=== PATIENT | female | born 1940 | race Caucasian/White ===

== ENCOUNTER 2017-09-15 03:10 | Emergency (ER) | payer MEDICARE, OTHER ==
[2017-09-15] MEDS ORDERED: Iodixanol* (CONTRAST) 320 MG/ML 100 ML SDV IV ONE (03:46)
[2017-09-15 06:33] LABS: ABS Basophils 0 10^3/ul (0-0.2); ABS Eosinophils 0 10^3/ul (0-0.6); ABS Lymphocytes 2.3 10^3/ul (1.0-4.8); ABS Monocytes 0.8 10^3/ul (0-0.8); ABS Nucleated RBC 0.3 10^3/ul; Eosinophil % 0.5 % (0-6); Hematocrit 42 % (35-47); Hemoglobin 14.3 g/dl (12.0-16.0); Lymphocyte % 24.6 % (25-47); Mean Corpuscular HGB Conc 34 g/dl (31-36); Mean Corpuscular Hemoglobin 35 pg (27-31); Mean Corpuscular Volume 103 fL (80-97); Mean Platelet Volume 9 um3 (7.4-10.4); Nucleated Red Blood Cells % 3.6; Platelet Count 104 10^3/ul (150-450); Red Blood Count 4.03 10^6/ul (4.0-5.4); Red Cell Distribution Width 14 % (10.5-15); White Blood Count 9.2 10^3/ul (3.5-10.8)
[2017-09-15 06:34] LABS: INR 4.29 (0.77-1.02)
[2017-09-15 06:44] LABS: EGFR Non-African American 47.4 (>60)
--- NOTE | 2017-09-15 06:55 | ED ---
Guicho Marcum Jennifer, scribed for Jeanmarie Cruz MD on 09/15/17 at 0328 . HPI Cardiac - HPI Summary HPI Summary: The pt is a 77 y/o female who was sent from [facility] for saddle PE and multiple DVTs. Pt had blood clot in one of the legs but doesnt know which one. She explains that six days ago, she was in bed and sat up when everything went haywire and she couldnt breathe. She was admitted to [place] for five days, but was still short of breath upon discharge. The pt was sent here to get re-evaluated today. She additionally complains of trouble breathing, weakness, and dry heaves. Pt denies chest pain, cough, fevers, abdominal pain, and pain in the legs. - History of Current Complaint Stated Complaint: SOB Time Seen by Provider: 09/15/17 03:14 Hx Obtained From: Patient Onset/Duration: Started Days Ago - six days, Still Present Timing: Constant Initial Severity: Mild Current Severity: Mild Pain Intensity: 0 Pain Scale Used: 0-10 Numeric Aggravating Factor(s): Nothing Alleviating Factor(s): Nothing Associated Signs and Symptoms: Positive: Other: - Blood clot, PE, CVT, trouble breathing, weakness, dry heaves. NEGATIVE: chest pain, cough, fevers, abdominal pain, pain in the legs - Allergy/Home Medications Allergies/Adverse Reactions: Allergies Allergy/AdvReac Type Severity Reaction Status Date / Time No Known Allergies Allergy Verified 09/15/17 03:17 Home Medications: Home Medications Acetaminophen [Tylenol] 650 mg PO Q6H PRN MDD 3000 09/15/17 [History Confirmed 09/15/17] Bisacodyl SUPP* [Dulcolax Supp*] 10 mg NM DAILY PRN 09/15/17 [History Confirmed 09/15/17] Cholecalciferol (Vitamin D3) [Vitamin D-3] 2,000 unit PO DAILY 09/15/17 [ History Confirmed 09/15/17] Clopidogrel Bisulfate [Plavix] 75 mg PO BEDTIME 09/15/17 [History Confirmed 09/03] Hydrocodone/Acetaminophen [[place] 5-325 mg] 1 tab PO Q4H PRN 09/15/17 [History Confirmed 09/15/17] Insulin Regular, Human [Novolin R] 2 units SQ ACHS 09/15/17 [History Confirmed 09/15/17] Lisinopril 20 mg PO DAILY 09/15/17 [History Confirmed 09/15/17] Lovastatin [Altoprev] 20 mg PO DAILY 09/15/17 [History Confirmed 09/15/17] Metformin HCl 500 mg PO BID 09/15/17 [History Confirmed 09/15/17] Oxycodone HCl/Acetaminophen [Percocet] 1 tab PO Q4H PRN 09/15/17 [History Confirmed 09/15/17] Warfarin Sodium [Coumadin] 2 mg PO DAILY 09/15/17 [History Confirmed 09/15/17] PMH/Surg Hx/FS Hx/Imm Hx Endocrine/Hematology History: Reports: Hx Diabetes Cardiovascular History: Reports: Hx Deep Vein Thrombosis, Hx Embolism Infectious Disease History: No Infectious Disease History: Denies: Traveled Outside the [place] in Last 30 Days - Family History Known Family History: Negative: Renal Disease - Social History Lives: Assisted Living - [facility] Review of Systems Negative: Fever Positive: Other - PE, DVT, blood clot in leg. Negative: Chest Pain Positive: Other - Difficulty breahting. Negative: Cough Positive: Other - Dry heaving. Negative: Abdominal Pain Negative: Myalgia - Pain in legs Positive: Weakness All Other Systems Reviewed And Are Negative: Yes Physical Exam - Summary Physical Exam Summary: Appearance: Appears dyspneic, no pain distress Skin: warm, dry, reflects adequate perfusion Head/face: normal Eyes: EOMI, PARVIZ ENT: normal Neck: supple, non-tender Respiratory: CTA, breath sounds present. O2 state on mask is 98. Cardiovascular: Tachypnic rate of 21, regular rhythm, pulses symmetrical Abdomen: non-tender, soft Bowel: present Musculoskeletal: Chronic nonpitting edema on both lower extremities, strength/ ROM intact Neuro: normal, sensory motor intact, A&Ox3 Triage Information Reviewed: Yes Vital Signs On Initial Exam: Initial Vitals Temp Pulse Resp BP Pulse Ox 97.6 F 85 24 129/78 96 09/15/17 03:10 09/15/17 03:10 09/15/17 03:10 09/15/17 03:10 09/15/17 03:10 Vital Signs Reviewed: Yes Diagnostics - Vital Signs Vital Signs Temp Pulse Resp BP Pulse Ox 03/02/18 03:10 97.6 F 85 24 129/78 96 - Laboratory Lab Results: Lab Results 09/15/17 Range/Units 03:19 Patient Temperature Not Reportable ABG pH 7.42 (7.35-7.45) ABG pH (Temp Correct) Not Reportable ABG pCO2 30 L (35-45) mmHg ABG pCO2 (Temp Corrct Not Reportable ABG pO2 84 (80-100) mmHg ABG pO2 (Temp Correct Not Reportable ABG HCO3 21.9 (19-31) mmol/L ABG O2 Saturation 98.4 H (95-98) % ABG Base Excess -3.8 L (-2.0-2.0) Respiration Rate Not Reportable O2 Delivery Device venturi Ventilator Type Not Reportable Vent Mode Not Reportable FiO2 50 Inspiratory Time Not Reportable PEEP Not Reportable Pressure Support Not Reportable Pressure Control Not Reportable EPAP Not Reportable IPAP Not Reportable BiPAP Not Reportable Result Diagrams: 09/15/17 06:18 09/15/17 06:18 Lab Statement: Any lab studies that have been ordered have been reviewed, and results considered in the medical decision making process. - CT No standard instances CT Interpretation: Positive (See Comments) CT Interpretation Completed By: Radiologist - discussed with rads (after we had initiated transfer for ED id of embolus) CT: Positive for large saddle PE with large clot burden and evidence for right heart strain - EKG 04:20 Cardiac Rate: NL EKG Rhythm: Sinus Rhythm - 96 BPM EKG Interpretation: low voltage, normal axis, non-specific ST flattening Re-Evaluation - Re-Evaluation First Eval Re-Evaluation Time: 05:19 Change: Unchanged Comment: The pt was unable to complete repeat CT due to hypoxia when flat. We obtained the records from [facility] in [place], [place]. Pt had a massive saddle PE with catheter thrombolysis bilaterally. She has a known below the knee residual DVT on the left. Disposition - Course Course Of Treatment: Pt on 50% Marisol on arrival. Unable to lay flat for CT initially. ABG looks ok on this FiO2. INR 6 just PROPERTY CARETAKER. Repeat labs here as am labs for hospitalist. Records obtained from [place] -- pt actually had catheter thrombolysis for massive saddle PE and circulatory comprimise. A DVT was noted below the L knee. Labs, findings d/w Hospitalist -- who had accepted transfer, but for ED eval. He has worked with me on decisions in ED. Failed first attempt at CT for dyspnea/plethora. Respiratory therapy/nursing will assist, perhaps on BiPAP or VapoTherm to get pt thru CT scan. Could be heart strain effects as well from residual or new portion of PE from leg. Vasc US not available until am. CT was grossly + for PE/saddle embolus. Pt with supratherapeutic INR. She cannot receive tPA due to this. Transfer emergently to [facility], Dr. Cesar in ED for ICU admit and consult with cardiothoracic etc. She may be a candidate for embolectomy. She is comorbid and at high risk of and disability from this PE. This explained to the patient. She accepted transfer. Assessment/Plan: Laboratory Data: WBC: 9.18 K/uL. HGB: 13.9 gm/dL. Platelet count: 123L. INR: 6.75(b)*P. BUN: 35H mg/dL. CREAT: 1.3 H mg/dL. CO2: 22 mmol/L. SGOT/AST: 61 H U/L. SGPT/ALT: 55 H U/L. ALK PHOS: 134 H U/L. The pt failed the CT scan initially due to dyspnea and hypoxia. We will put her on BiPAP. - Diagnoses Provider Diagnoses: Supratherapeutic INR, Hypoxemia, Pulmonary embolism, DM (diabetes mellitus) - Physician Notifications Discussed Care Of Patient With: Alexis Corbin Time Discussed With Above Provider: 04:54 Instructed by Provider To: Admit As Inpatient Admit/Transition Orders Completed By ED Provider: Yes - Discussed with [facility] Transfer Center -- auto accepted to Dr Cesar (ER) - Critical Care Time Critical Care Time: 75-104 min - CCT is exclusive of separately billable procedures Discharge - Discharge Plan Condition: Guarded Disposition: TRANS HIGHER LVL OF CARE FAC Referrals: Melchor Mistry DO [Primary Care Provider] - The documentation as recorded by the Guicho martinez Jennifer accurately reflects the service I personally performed and the decisions made by me, Jeanmarie Cruz MD.
--- NOTE | 2017-09-15 07:56 | RAD ---
INDICATION: Chest pain. Short of breath. Evaluate for pulmonary embolus. COMPARISON: None TECHNIQUE: Axial source images were obtained from the thoracic inlet to the hemidiaphragms following administration of 96 mL Visipaque [address] angiographic technique was utilized. Coronal and sagittal reconstructed images were acquired. CHEST FINDINGS: Neck/thyroid: There is a left thyroid nodule. This can be reevaluated with nonemergent follow-up thyroid sonography. Chest wall: There are no acute abnormalities of the bony thorax or chest wall. There is no supraclavicular, infraclavicular, or axillary lymphadenopathy. Lungs : There is a small amount of infiltrate or atelectasis in the periphery of left lung base. The pulmonary interstitium appears normal. There are no endobronchial lesions. Cardiomediastinal structures: There is a saddle pulmonary embolus with extension to fourth and fifth order branches bilaterally.. This is a large burden of thrombus. The heart is normal in size. There is no pericardial effusion. There is no evidence of aortic aneurysm or dissection. There is no mediastinal or hilar adenopathy. The esophagus appears normal. Pleura : There are small bilateral pleural effusions with partial loculation on the left.. Other: None. IMPRESSION: EXTENSIVE PULMONARY EMBOLI WITH LARGE CLOT BURDEN
[2017-09-15 08:28] VITALS: BP 135/51
== END 2017-09-15 08:20 | disposition short-term general hospital (02) ==
LOC: ED 03:10
DX: I26.99 Other pulmonary embolism without acute cor pulmonale (principal); E11.9 Type 2 diabetes mellitus without complications; R09.02 Hypoxemia; R79.1 Abnormal coagulation profile; Z86.718 Personal history of other venous thrombosis and embolism; Z79.84 Long term (current) use of oral hypoglycemic drugs; Z79.4 Long term (current) use of insulin; Z79.01 Long term (current) use of anticoagulants
CPT/HCPCS: 36415; 36600; 71275; 80048; 82803; 84484; 85025; 85610; 93005; 96374; 99285; Q9967

== ENCOUNTER 2018-01-07 06:33 | Inpatient (IN) | payer MEDICARE, MEDICAID ==
--- NOTE | 2018-01-07 07:55 | ED ---
Complex/Multi-Sys Presentation - HPI Summary HPI Summary: Patient is a 78-year-old female with history of diabetes, PAD, NSTEMI, and recent saddle PE as of August. She currently remains on Lovenox 150 mg twice a day. She states that approximately 4 PM yesterday she began to feel very weak and dizzy without headache or visual changes. She decided to take a nap and awoke several hours later and continued to feel worsening dizziness and weakness. She endorses feeling "heavy all over" but denies any chest pain, chest pressure or shortness of breath. She endorses some nausea and 1x episode vomiting at 11 PM. She then called her daughter who took her to [facility] where labs, chest x-ray and CT brain obtained. She states she is extremely fatigued and is having difficulty sitting up. She is in a motorized wheelchair and is fairly independent at home with an aide to help with daily activities. Vital signs are stable on arrival. Daughter is at bedside. - History Of Current Complaint Chief Complaint: EDGeneral Time Seen by Provider: 01/07/18 06:34 Hx Obtained From: Patient, Family/Scenery Builder Onset/Duration: Sudden Onset Timing: Constant Severity Currently: Moderate Severity Initially: Moderate Associated Signs And Symptoms: Positive: Dizziness, Weakness, Nausea, Vomiting, Decreased Oral Intake, Anticoagulation Therapy Related History: Other - saddle PE's as of Aug - Allergies/Home Medications Allergies/Adverse Reactions: Allergies Allergy/AdvReac Type Severity Reaction Status Date / Time No Known Allergies Allergy Verified 09/15/17 03:17 Home Medications: Home Medications Chlorthalidone 25 mg PO DAILY 01/07/18 [History Confirmed 01/07/18] Enoxaparin(*) [Lovenox(*)] 150 mg SQ Q12H 01/07/18 [History Confirmed 01/07/18] PMH/Surg Hx/FS Hx/Imm Hx Previously Healthy: No - see below Endocrine/Hematology History: Reports: Hx Diabetes Cardiovascular History: Reports: Hx Deep Vein Thrombosis, Hx Embolism - Immunization History Hx Pertussis Vaccination: No Immunizations Up to Date: Unable to Obtain/Confirm Infectious Disease History: No Infectious Disease History: Denies: Traveled Outside the [place] in Last 30 Days - Family History Known Family History: Negative: Renal Disease - Social History Occupation: Unemployed Lives: Alone - with help of part-time aide Alcohol Use: None Hx Substance Use: No Substance Use Type: Reports: None Hx Tobacco Use: No Smoking Status (MU): Never Smoked Tobacco Review of Systems Positive: Fatigue. Negative: Fever, Chills, Skin Diaphoresis Negative: Blurred Vision, Diplopia, Drainage Negative: Palpitations, Chest Pain Negative: Shortness Of Breath, Cough Positive: Vomiting, Nausea. Negative: Abdominal Pain, Diarrhea Genitourinary: Negative Positive: no symptoms reported, see HPI Negative: Arthralgia, Myalgia Positive: Weakness. Negative: Headache, Paresthesia, Numbness, Syncope, Slurred Speech Psychological: Normal All Other Systems Reviewed And Are Negative: Yes Physical Exam Triage Information Reviewed: Yes Vital Signs On Initial Exam: Initial Vitals Temp Pulse Resp BP Pulse Ox 98.6 F 69 18 123/54 98 01/07/18 07:04 01/07/18 07:04 01/07/18 07:04 01/07/18 07:04 01/07/18 07:04 Vital Signs Reviewed: Yes Appearance: Positive: Well-Appearing, No Pain Distress, Well-Nourished, Obese. Negative: Ill-Appearing, Signs of Trauma Skin: Positive: Skin Color Reflects Adequate Perfusion Head/Face: Positive: Normal Head/Face Inspection Eyes: Positive: EOMI, PARVIZ, Conjunctiva Clear Neck: Positive: Supple, Nontender, No Lymphadenopathy Respiratory/Lung Sounds: Positive: Clear to Auscultation, Breath Sounds Present Cardiovascular: Positive: RRR, Pulses are Symmetrical in both Upper and Lower Extremities, Leg Edema Left, Leg Edema Right Musculoskeletal: Positive: Normal, Strength/ROM Intact Neurological: Positive: Sensory/Motor Intact, Alert, Oriented to Person Place, Time, CN Intact II-III, Speech Normal. Negative: Facial Droop, Slurred Speech, Dysphagia Psychiatric: Positive: Normal, Affect/Mood Appropriate AVPU Assessment: Alert - [place] Coma Scale Best Eye Response: 4 - Spontaneous Best Motor Response: 6 - Obeys Commands Best Verbal Response: 5 - Oriented Coma Scale Total: 15 Glascow Coma Scale Comments: NIH scale= 0 Diagnostics - Vital Signs Vital Signs Temp Pulse Resp BP Pulse Ox 01/07/18 07:04 98.6 F 69 18 123/54 98 - Laboratory Lab Statement: Any lab studies that have been ordered have been reviewed, and results considered in the medical decision making process. - Radiology No standard instances Xray Interpretation: No Acute Changes - No acute cardiopulmonary changes Radiology Interpretation Completed By: Radiologist - CT No standard instances CT Interpretation: Positive (See Comments) - see course of treatment CT Interpretation Completed By: Radiologist - EKG No standard instances Cardiac Rate: NL EKG Rhythm: Sinus Rhythm ST Segment: Normal Ectopy: None EKG Interpretation: sinus rhythm, moderate left axis deviation, low QRS voltage in chest leads EKG Comparison: Other - no other comparisons available Re-Evaluation - Re-Evaluation First Eval Change: Unchanged - Continues to feel weak and dizzy, concerned with falling Complex Multi-Symp Course/Dx Course Of Treatment: Received signout information from Dr. Arana who accepted patient to the ED. Patient sent from [facility] for the chance to obtain an MRI if needed based on CT results. Results from CT: There is a small 7 mm low attenuation lesion surrounded by a high attenuation irregular halo, located just at the superior edge of the inferior vermis most likely in the nodulous, of unclear etiology. It is concerning for small vessel hemorrhage , however hemorrhagic mass lesion cannot be excluded on this examination and without prior studies for comparison, MRI with and without intravenous contrast be helpful. Dr. Arana called Dr. Doyle at approx 5am to make aware of patient and request if patient may be transferred to our ED for an MRI if needed. Patient is trasnferred to our facility, arriving at 6:30am. On physical examinations, no neuro deficits are noted. Patient is alert and oriented 3, obeys commands. No limb ataxia is noted, sensory is intact, strength equal to the upper extremities unable to perform to the lower extremities due to dependent edema at baseline. Language intact with no dysarthria. Patient is at baseline per her daughter except for extreme fatigue and weakness. Patient denies any neuro deficits during this time and denies any LOC, head injury or falls. D/t continued weakness and fatigue, patient will be admitted to hospitalist service. MRI will take place in the morning per Dr. Doyle. On reevaluation, patient continues to be very uncomfortable. She is given morphine for her back, Zofran and meclizine for dizziness. - Diagnoses Differential Diagnoses/HQI/PQRI: Closed Cranial Trauma Provider Diagnoses: Weakness - Physician Notifications Discussed Care Of Patient With: Jordan Doyle - Suggested MRI Time Discussed With Above Provider: 09:00 Instructed by Provider To: Other - MRI to r/o bleed vs other Discharge - Sign-Out/Discharge Documenting (check all that apply): Discharge/Admit/Transfer - Discharge Plan Condition: Stable Disposition: ADMITTED TO [facility] Referrals: Skylar Pablo MD [Primary Care Provider] - - Billing Disposition and Condition Condition: STABLE Disposition: Admitted to [facility] NIH Scale - NIH Scale Level of Consciousness: Alert/Keenly Responsive - NIH scale = 0 Ask Patient the Month and His/Her Age: Both Correct Ask Pt to Open/Close Eyes and Oyster Unloader/Release Non-Paretic Hand: Both Correctly Best Gaze (Only Horizontal Eye Movement): Normal Visual Field Testing: No Visual Loss Facial Paresis-Pt to Smile & Close Eyes or Grimace Symmetry: Normal/Symmetrical Motor Function - Right Arm: No Drift-Holds 10 Seconds Motor Function - Left Arm: No Drift-Holds 10 Seconds Limb Ataxia-Must be out of Proportion to Weakness Present: Absent Sensory (Use Pinprick to Test Arms/Legs/Trunk/Face): Normal Best Language (Describe Picture, Name Items): No Aphasia Dysarthria (Read Several Words): Normal Extinction and Inattention: No Abnormality
[2018-01-07] MEDS ORDERED: Meclizine TAB* 12.5 MG PO ONE ×2 (11:49→13:42)
[2018-01-07] MEDS ORDERED: Metoclopramide IV* 5 MG/ML 2 ML VIAL IV ONE (11:49)
[2018-01-07] MEDS ORDERED: Morphine VIAL* 4 MG/ML VIAL (1 ml vial) IV ONE (11:49)
[2018-01-07] MEDS ORDERED: Ondansetron INJ* 2 MG/ML VIAL IV ONE (13:42)
[2018-01-07] MEDS ORDERED: Ondansetron SYRINGE* 4 MG/2 ML SYRINGE (from 40mg/20ml vial) IV ONE (13:45)
[2018-01-07] MEDS ORDERED: Enoxaparin(*) 150 MG/ML 1 ML SYRINGE SUBCUT SCH (17:00)
[2018-01-07] MEDS ORDERED: Ondansetron 40 MG VIAL* 2 MG/ML 20 ML VIAL IV PRN (17:53)
[2018-01-07] MEDS ORDERED: Magnesium Sulf 4 GM/100 ML IV* 4,000 MG/100 ML BAG IVPB ONE (19:32)
--- NOTE | 2018-01-07 21:44 | HP ---
CC: Dr. Pablo * HISTORY AND PHYSICAL: DATE OF ADMISSION: 01/07/18 TIME OF MY EVALUATION: 5 p.m. PRIMARY CARE PROVIDER: Dr. Skylar Pablo CHIEF COMPLAINT: Dizziness/suspicious CT scan with need for followup MRI. HISTORY OF PRESENT ILLNESS: Ms. Faulkner is a pleasant 78-year-old woman who has a history of diabetes, peripheral arterial disease, non-STEMI and recent saddle PE in August 2017. The patient is currently on Lovenox 150 mg twice daily for treatment of this. There was a calculation that she would not to go with Coumadin and that the other NOAC's were inappropriate for her treatment and she has been taking Lovenox since then. She has not been monitored for her anti- factor Xa level. The patient has not been feeling well for some time. She has felt weak and recently dizzy. She had a headache several days ago. She does not have a headache now nor does she have visual changes. The patient awoke last night and felt very dizzy and weak. She realized she had not taken her 11 p.m. dose of Lovenox. She went to the bathroom, but could not get off the commode. She called to her family and she was brought to [facility] Emergency Room. A head CT showed a concerning lesion or specifically, "a small 7 mm low-attenuation lesion surrounded by a high-attenuation irregular halo, located just at the superior edge of the inferior ramus, most likely in the nodulous, of unclear etiology. It is concerning for a small vessel hemorrhage; however, hemorrhagic mass lesion cannot be excluded on this examination without prior studies for comparison. MRI with and without intravenous contrast would be helpful." The [facility] referred the patient to [facility] for further imaging and potentially Neurology or Neurosurgery evaluation. The patient's symptomatology has remained stable. She is not in extremis. She is admitted to the medicine service with intent to proceed with an MRI when that test is available. PAST MEDICAL HISTORY: 1. Pulmonary embolism - saddle embolus in August 2017, status post t-PA x2 ( treated at [facility]) with ongoing anticoagulation with Lovenox. 2. Hypertension. 3. Type 2 diabetes. 4. Hypertension. 5. Coronary artery disease with history of [place]. 6. Hemochromatosis. 7. History of appendectomy. 8. History of left leg stent placement for a peripheral arterial disease. OUTPATIENT MEDICATIONS: 1. Enoxaparin 150 mg subcu q.12. 2. Chlorthalidone 25 mg by mouth daily. 3. Metformin 500 mg by mouth twice daily. 4. Lisinopril 20 mg by mouth daily. 5. Lovastatin 20 mg by mouth at bedtime. ALLERGIES: No known drug allergies. FAMILY HISTORY: Reviewed, but noncontributory based on this presentation. SOCIAL HISTORY: The patient denies alcohol or tobacco use. She is accompanied by 2 family members including her daughter who is a surrogate decision maker. The patient is a full code. Her daughter's name is Val Gil who could be reached at [phone]. Second daughter, Kiley Sampson, who could be reached at [phone]. REVIEW OF SYSTEMS: A review of 14 points was accomplished at the bedside. This was largely negative, except for the pertinent positives as mentioned above in the HPI and past medical history. Specifically, there has been no fever. There has been no head trauma. No fainting or syncope. No chest pain. No new shortness of breath. No weight gain or weight loss. PHYSICAL EXAMINATION On admission: GENERAL: The patient is an elderly woman, lying in the [facility], no apparent distress, awake, alert and oriented x3 and answers questions appropriately. VITAL SIGNS: Temperature 98.6 degrees Fahrenheit, blood pressure ranges between 110 and 120/50s to 60s, heart rate 60s and regular, oxygen saturation 96 % on room air, respiratory rate is 17 to 20 and unlabored. HEENT: Oropharynx is clear. Mucous membranes are moist. No posterior pharyngeal erythema or exudate. LYMPH: No adenopathy appreciated. CHEST: Clear breath sounds anteriorly and posteriorly. No increased work of breathing. No rales, rhonchi, wheezing. HEART: Regular rate and rhythm. No murmurs appreciated. ABDOMEN: Soft and nontender. EXTREMITIES: Without clubbing, cyanosis. She does have 1+ edema bilaterally. No deformity. NEUROLOGIC: Cranial nerves are intact II through XII. Normal symmetric smile. No facial asymmetry. No motor or sensory or reflex component deficiencies on a detailed neurologic examination. PSYCH: Normal affect. No acute anxiety or depression. She has got excellent medical recall. She seems like a good historian. ADMISSION DATA: From [facility] included generally normal labs including a sodium of 135, potassium 3.8, chloride 101, bicarb 22, anion gap 12 , BUN 23, creatinine 1, glucose 176. Calcium not done. Magnesium 1.3 (low). AST 74, ALT 57, alk phos 130 (AST, ALT and alk phos were each mildly elevated). CK 56. Troponin 0.004. BNP normal at 55. Albumin mildly low at 3.3. INR 0.9. White blood cell count 7.1, hemoglobin 14.6, platelets 233. Her head CT without contrast showed the 7 mm lesion, I commented upon earlier in the HPI. Chest x-ray, no active disease in the pulmonary parenchyma, no evidence of pulmonary edema. IMPRESSION: Ms. Faulkner is a 78-year-old woman on high-dose Lovenox for some time. She is on the high end of dosing allowed daily and obese patients sometimes have problems maintaining consistent levels of Lovenox, accordingly a CRANE OILER hemorrhage is possible. Her creatinine is a bit on the high side given her age adjusted creatinine clearance. The patient has not evolution in her stated symptoms and so, she will be placed on the medical floor with intention to pursue an MRI in the next 1 day. The patient will have her anticoagulation held. The patient will continue all other medications and receive symptomatic control of any nausea she might experience. She will have labs rechecked tomorrow, though her labs do not seem abnormal at this point. I am going to replete her magnesium. I will also recheck her LFTs, which had mild elevations. The patient will have a regular diet if she can tolerate. I will check an A1c to assess her status of diabetes. Her blood pressure will be followed carefully. Further decisions will be based on clinical course. TOTAL SPENT: Total time taken to admit Ms. Faulkner was 75 minutes, greater than half that time was spent conducting history and physical examination at the bedside with the patient. [id number]/[facility] #: [id number] [facility] HOSPITALKimberlyn
[2018-01-07] MEDS: Atorvastatin* 10 MG TAB PO SCH (21:45)
[2018-01-08 07:08] LABS: Hematocrit 41 % (35-47); Hemoglobin 14.3 g/dl (12.0-16.0); Platelet Count 205 10^3/ul (150-450)
[2018-01-08 07:27] LABS: EGFR Non-African American 60.9 (>60)
[2018-01-08] MEDS: Lisinopril TAB* 10 MG PO SCH (08:47)
[2018-01-08] MEDS: Chlorthalidone TAB* 50 MG PO SCH (08:49)
[2018-01-08] MEDS ORDERED: Lisinopril TAB* 10 MG PO SCH (09:00)
[2018-01-08] MEDS ORDERED: Gadoteridol* (CONTRAST) 279.3 MG/ML 10 ML IV ONE (11:45)
[2018-01-08] MEDS ORDERED: NS 0.9% 1000 ML* 1,000 ML IV ONE (12:05)
[2018-01-08] MEDS ORDERED: Morphine VIAL* 4 MG/ML VIAL (1 ml vial) IV ONE (12:06)
--- NOTE | 2018-01-08 12:29 | RAD ---
Indication: Cerebellar lesion noted on January 07, 2018 CT. MRI requested for further characterization. Comparison: January 07, 2018 CT. Technique: MRI brain without and with contrast. 20 mL ProHance administered IV. Report: At the midline central cerebellum there is a 0.8 cm AP by 0.8 cm transverse by 1.0 cm cephalocaudal nonenhancing lesion with marked susceptibility artifact. The lesion demonstrates a peripheral low signal margin corresponding with calcification on CT. Mild surrounding increased T2 signal without mass effect is most consistent with gliosis. No compelling true foci of restricted diffusion evident. Unremarkable cerebral sulci, ventricles, and basal cisterns for age. 0.7 cm maximum dimension T2 hyperintense nonenhancing lesion at the subcortical white matter of the RIGHT frontal lobe without mass effect while nonspecific is most suggestive of a focus of small vessel ischemic disease. Preserved major intracranial flow-voids. Unremarkable orbital contents. Solitary opacified LEFT ethmoid air cell noted. Negative for paranasal sinus fluid levels. Clear mastoid air spaces. No suspicious calvarial or skull base lesions evident. Unremarkable scalp. IMPRESSION: 1. Lesion at the midline central cerebellum is most consistent with an old intra-axial hemorrhage site with secondary marginal calcification and surrounding gliosis. Consider reassessment with noncontrast CT in 3 months time to confirm stability. 2. No acute intracranial process evident.
[2018-01-08] MEDS: Acetaminophen TAB* 325 MG PO PRN (20:11)
[2018-01-08] MEDS: Atorvastatin* 10 MG TAB PO SCH (20:12)
--- NOTE | 2018-01-08 23:26 | CONS ---
NEUROLOGY CONSULTATION REPORT: DATE OF CONSULT: 01/08/18. CONSULTING PHYSICIAN: Elvis Stroud MD REASON FOR CONSULT: Abnormal MRI. CHIEF COMPLAINT: Dizziness. HISTORY OF PRESENT ILLNESS: Mrs. Elena Faulkner is a pleasant 78-year-old right- handed female, who is accompanied today by both daughters and grandchild. Her daughter, Val significantly helped obtaining the history. The patient has a history of diabetes mellitus type 2, obesity, diabetic peripheral neuropathy, peripheral artery disease, status post stenting in both lower extremities, diagnosis of a saddle pulmonary embolism in August 2017 where she has been taking Lovenox 150 mg twice daily. The patient presented to an outside hospital , [facility] emergency room with symptoms of headaches and dizziness. The headaches were described as a pressure sensation on the top of the head with radiating to the occipital region and only occurred Monday night at approximately 11 p.m. She was sleeping at that time, but dizzy and could not do anything. She felt like everything around her is moving and she feels like she is going to fall. The vertiginous sensation that was described, is triggered by head deviation towards the left. She feels like she needs to hold on to something when looking towards the left. The symptoms last 30-60 seconds and spontaneously improved. That weekend, the patient came back from a memorial function. She thought she was getting sick from the food she had consumed. She had one episode of vomiting associated with the dizziness. She also felt like she was fatigued and described a sensation of feeling bricks all over her body. She had no energy that night. Since then, she has been sleeping a lot. She has not had any headaches since Monday. She had to take Tylenol for the occipital pain that immediately resolved. She denied any visual disturbance. She denied any double vision. She did have an inner ear problem a year and half ago where she had to see an ENT specialist and they gave her a nasal spray to get rid fluids behind her ear. She does not have any tinnitus, but does exhibit mild hearing loss. At [facility], the patient had a CT of the head that showed an irregular nodular mass in the central cerebellum mostly involving the vermis with the hypodense core and hyperdense borders. The patient was then transferred to [facility] for further evaluation. Since being hospitalized, the patient stated that her vertigo has improved a bit until she underwent the MRI study today. Since then, the patient is having intermittent vertigo mostly again when she turns towards the left. The Lovenox has been discontinued since admission. PAST MEDICAL HISTORY: Pulmonary embolus, status post tPA x2 treated at [facility] with ongoing anticoagulation with Lovenox, hypertension, type 2 diabetes , peripheral neuropathy, peripheral vascular disease, hemochromatosis, coronary artery disease with history of [place], history of appendectomy, two natural births and one miscarriage, vascular stents in both legs. MEDICATIONS: Her outpatient medications include: 1. Enoxaparin 150 mg subcutaneous every 12 hours. 2. Chlorthalidone 25 mg by mouth daily. 3. Metformin 500 mg by mouth twice daily. 4. Lisinopril 20 mg by mouth daily. 5. Lovastatin 20 mg by mouth at bedtime. ALLERGIES: No known drug allergies. FAMILY HISTORY: Mother was killed at age 29 and her father had a heart attack at age 80. There is no history of stroke or seizures. SOCIAL HISTORY: The patient denied alcohol or tobacco use. She is retired and "master of all trades." She lives alone, but has a caregiver that comes 30 hours a week. At baseline, the patient can stand, pivot, and sit. She cannot walk for 4-5 years. She is a walker and wheelchair dependent due to lower extremity pain as well as low back pain and neuropathy. REVIEW OF SYSTEMS: A 14-point review of systems was obtained and is negative except for what was mentioned in the HPI. PHYSICAL EXAM: Vitals: Temperature of 97.1, pulse rate of 62, respiratory rate of 20, oxygen saturation 95% on room air, and blood pressure 104/41. General: Morbidly obese, chronically ill-appearing female, in no acute distress. Head: Normocephalic without obvious abnormality. Eyes: Conjunctivae/corneas are clear. Neck: Supple and symmetrical with no carotid bruit. Lungs are clear to auscultation bilaterally and unlabored breathing. Cardiovascular: Regular rate and rhythm. Normal S1, S2. Extremities: Normal range of motion with no cyanosis. Psych: Affect is broad and normal mood, easy to establish rapport. She was laughing with the examiner throughout the history taking. HINTS examination was done and there was positive HINTS towards the right. Neurological Examination: Mental status, awake and alert, oriented to person and place and time and general circumstance. Her speech and language including expression, naming, repetition and comprehensions were assessed and found to be normal. She did have trouble with recalling 2/5 objects, but was able to spell the word world and was oriented to person, place, time as well as the president and current ongoing events. Cranial nerves normal confrontation testing bilaterally and pupils are mid range and reactive to light with normal consensual response. Mild nystagmus towards the left with end-gaze testing. The nystagmus was slightly horizontal. Sensation is intact to forehead, cheeks , and jaw region bilaterally. There is no facial droop. She was hard of hearing. Palatal elevation symmetric. The tongue is symmetrical and midline and with no atrophy or fasciculation. Motor: There are no abnormal movements. No pronator drift. She has normal bulk and tone throughout. Strength is intact with elevation of the arms and legs to command. Reflexes: 1+ in the upper extremities and 0 in the lower extremities bilaterally. She has flexor plantar response bilaterally. Sensation is intact to light touch throughout, but she did have a distal to proximal sensory gradient demarcated at the knees bilaterally. She has absent vibratory sensation at the toes with intact proprioception sensation at the toes. Coordination: Normal [id number] and rapid alternating movement. Gait and station not assessed, as the patient is wheelchair bound. DIAGNOSTIC STUDIES/LAB DATA: Laboratory and other diagnostic testing, hemoglobin 14. Sodium of 137, blood glucose of 160. MRI of the brain with and without contrast obtained completed today, 01/08/18, and I personally reviewed the image as well as reviewed the image with Dr. Mane Bal via telephone. There is a lesion in the midline of the central cerebellum mostly involving the vermis measuring approximately 0.8 cm x 0.8 cm x 1 cm cephalocaudal nonenhancing lesion with marked susceptibility artifact, although an old hemorrhage is within the differential specifically in the setting of a slow flow vascular malformation such as a cavernous angioma. Other differential diagnoses that are less likely include dystrophic calcification, metastatic disease, low-grade astrocytoma or oligodendroglioma. However, the lack of enhancement pretty much excludes the later differential diagnoses. ASSESSMENT: 1. Mrs. Faulkner is a pleasant 78-year-old female with what I suspect peripheral vertigo that may have been triggered by either in upper respiratory or gastrointestinal infection. I suspect the vertigo has a peripheral component given that it is triggered every time she looks towards the left side. A central vertigo would be more constant and non-abating after a few seconds. 2. 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 Bal. I would like to see the CT head images once uploaded to the system. I do not suspect that this is an acute or subacute intracranial hemorrhage. The patient has no known history of cancer thus metastatic disease is unlikely, plus the lesion does not enhance, thus a high-grade glioma is also unlikely. In regards to anticoagulation therapy, it would be probably safer to closely monitor the patient on Coumadin with again close monitoring of the INR rather than restarting her on Lovenox. I would prefer to repeat the CT head after 7- 10 days of restarting anticoagulation therapy to make sure the intracranial lesion does not expand. Furthermore, I would recommend obtaining a neurosurgical evaluation for a second opinion and to establish outpatient followup with neurosurgery in the future in case the lesion expands. I discussed ordering an MRA or considering cerebral angiogram with Dr. Bal but given the small size of the area, it may not be apparent on further vascular studies. This can still be a consideration in the future. 3. Generalized fatigue - rule out any metabolic causes of nonspecific fatigue. Given her morbid obesity, she may have underlying obstructive sleep apnea that is also contributing to her fatigue. I differ further recommendation to the primary team. However, I will check vitamin B12 and TSH if that has not been checked yet. RECOMMENDATIONS: 1. Obtain a neurosurgical evaluation 2. From the Neurology standpoint, the patient can start anticoagulation with Coumadin rather than Lovenox with close monitoring of INR (goal 2-2.5). 3. Repeat the CT head with at least 7-10 days once the INR becomes therapeutic. 4. BP goal: systolic blood pressure should remain below 140 mmHg. 5. I have ordered vitamin B12 and TSH to evaluate for secondary causes of fatigue. 6. I recommend PT evaluation to perform the Florentino maneuver. I have discussed these recommendations in this case with Dr. Bal and Dr. Elvis Stroud, who agreed with the above recommendations. [id number]/[facility] #: [id number] [facility]
[2018-01-09] MEDS: Lisinopril TAB* 10 MG PO SCH (10:25)
[2018-01-09] MEDS: Chlorthalidone TAB* 50 MG PO SCH (10:26)
--- NOTE | 2018-01-09 11:40 | PN ---
Subjective Date of Service: 01/09/18 Interval History: patient reports she feels a little better today but continues to have dizziness when moving head to either side. Still feels that she cannot get OOB d/t dizziness. She reports improved appetite this morning. No abd pain N/v/D. Denies ALEMAN, vision changes, weakness. Discussed at length starting coumadin. Daughter at the bedside. Objective Active Medications: Acetaminophen (Tylenol Tab*) 650 mg PO Q6H PRN PRN Reason: HEADACHE Last Admin: 01/08/18 20:11 Dose: 650 mg Atorvastatin Calcium (Lipitor*) 5 mg PO BEDTIME BROCK Last Admin: 01/08/18 20:12 Dose: 5 mg Chlorthalidone (Hygroton Tab*) 25 mg PO DAILY [facility] Last Admin: 01/09/18 10:26 Dose: 25 mg Lisinopril (Prinivil Tab*) 10 mg PO DAILY [facility] Last Admin: 01/09/18 10:25 Dose: Not Given Ondansetron HCl (Zofran 40 Mg Vial*) 4 mg IV Q6H PRN PRN Reason: NAUSEA/VOMITING Last Admin: 01/08/18 13:37 Dose: 4 mg Vital Signs - 8 hr 01/09/18 01/09/18 03:56 07:56 Temperature 97.9 F 97.2 F Pulse Rate 66 64 Respiratory 16 18 Rate Blood Pressure 111/52 97/44 (mmHg) O2 Sat by Pulse 93 94 Oximetry Oxygen Devices in Use Now: None Appearance: morbidly obese female laying in bed in NAD, A+O x3, CADDO Eyes: No Scleral Icterus, PERRLA Ears/Nose/Mouth/Throat: NL Teeth, Lips, Gums, Mucous Membranes Moist Neck: NL Appearance and Movements; NL JVP Respiratory: Symmetrical Chest Expansion and Respiratory Effort, Clear to Auscultation Cardiovascular: NL Sounds; No Murmurs; No JVD, RRR, - - 1+ lymphedema Abdominal: NL Sounds; No Tenderness; No Distention, - - obese Extremities: No Clubbing, Cyanosis Neurological: Alert and Oriented x 3, NL Sensation, NL Muscle Strength and Tone Lines/Tubes/Other Access: Clean, Dry and Intact Peripheral IV Nutrition: Taking PO's Result Diagrams: 01/09/18 11:44 01/09/18 11:44 Assess/Plan/Problems-Billing Assessment: Ms. Solo is a 78 yo female with hx of morbid obesity, CAD with hx of NSTEMI, PAD, recent saddle PE in Aug 2017 with tPA x2 at [facility] on lovenox, DMII, HTN, s/p left leg stent for PAD who presented to [facility] ER on 01/07 for c/o dizziness and was found to have an abnormal CT and was transferred to [facility] - Patient Problems (1) Dizziness Comment: - appreciate neurology consult - suspects peripheral vertigo recommending Florentino maneuver as outpt with PT. - MRI showing cavernous angionoma (incidental finding), NS reviewed films. No contraindication to anticoagulation of any kind. - Slowly improving. Start Meclazine scheduled. - PT eval (2) ARF (acute renal failure) Comment: - creatinine up a little today, poor PO intake of fluids. Give 1 liter NS x1 now slowly. Recheck in am (3) Pulmonary embolism Comment: - Hx of saddle PE with tPA x2 in Aug 2017, was DC home from [facility] on Lovenox BID for 3-6 months and the plan per patient was to start a different agent. Discussed couamdin with pt and daughter. the plan will be to bridge coumadin with lovenox. Ok to restart anticoagulation per neurology (4) DM (diabetes mellitus) Comment: - HgA1C 6.5 - FSBG AC with Lispro SS - Hold Metformin (5) HTN (hypertension) Comment: - Hold parameters on lisinopril and chlorthalidone, d/t soft BPs. (6) Morbid obesity (7) DVT prophylaxis Comment: coumadin lovenox bridge (8) Full code status Status and Disposition: Inpatient. PT to eval to determine status. May require subacute
[2018-01-09 11:51] LABS: ABS Basophils 0.1 10^3/ul (0-0.2); ABS Eosinophils 0.1 10^3/ul (0-0.6); ABS Lymphocytes 1.5 10^3/ul (1.0-4.8); ABS Monocytes 0.4 10^3/ul (0-0.8); ABS Neutrophils 3.7 10^3/ul (1.5-7.7); ABS Nucleated RBC 0 10^3/ul; Eosinophil % 2.1 % (0-6); Hematocrit 43 % (35-47); Hemoglobin 14.7 g/dl (12.0-16.0); Lymphocyte % 26.3 % (25-47); Mean Corpuscular HGB Conc 34 g/dl (31-36); Mean Corpuscular Hemoglobin 34 pg (27-31); Mean Corpuscular Volume 100 fL (80-97); Mean Platelet Volume 6.9 um3 (7.4-10.4); Nucleated Red Blood Cells % 0.1; Platelet Count 194 10^3/ul (150-450); Red Blood Count 4.32 10^6/ul (4.00-5.40); Red Cell Distribution Width 13 % (10.5-15); White Blood Count 5.9 10^3/ul (3.5-10.8)
[2018-01-09 12:01] LABS: INR 1.01 (0.77-1.02)
[2018-01-09 12:15] LABS: EGFR Non-African American 52.7 (>60)
[2018-01-09] MEDS: Meclizine TAB* 12.5 MG PO SCH ×2 (13:59→22:52)
[2018-01-09] MEDS: Acetaminophen TAB* 325 MG PO PRN (13:59)
[2018-01-09] MEDS ORDERED: Dextrose 50% Syringe 50 ML* 25 GM/50 ML SYRINGE IV PUSH PRN (15:13)
[2018-01-09] MEDS ORDERED: NS 0.9% 1000 ML* 1,000 ML IV SCH (15:30)
--- NOTE | 2018-01-09 15:37 | CONSULT ---
Consult Consult: Neurosurgery Consult Date of Admission: 01/07/18 Date of Consult: 01/09/18 Referring Provider: Anjana Infante NP Reason for Consult: Cavernous angioma HPI: This is a 78 year old female with past medical history significant for saddle PE in August, diabetes, CAD and PAD who presented to [facility] ED after obtaining CT at [place] for work up of dizziness. She states that she experienced a headache last relieved with Tylenol. On Monday, she developed dizziness, generalized feeling of weakness, nausea, vomiting and " wavy vision". At baseline, she uses an electric wheelchair but is able to stand , pivot and sit. She was unable to get up off of the commode on Monday and therefore called for help. She was brought to [place] ED where CT was obtained showing cavernous angioma. She was transferred to [facility] for further evaluation. MRI was obtained showing cavernous angioma. Currently, she states that she feels well. Wavy/blurred vision and dizziness is improved and she is able to clearly see her daughter sitting across the room. Dizziness worsens with head movements. Denies vision changes, headache, nausea, vomiting, lack of coordination, Past Medical History: 1. Pulmonary embolism 2018- treated at [facility] 2. HTN 3. Diabetes 4. Obesity 5. Hemochromatosis 6. CAD with history of MA 7. Peripheral artery disease- stent placed 8. Cavernous angioma cerebellum 9. Peripheral neuropathy Past Surgical History: 1. Appendectomy 2. LLE stent placement Home Medications: 1. Lisinopril 20 mg PO DAILY 09/15/17 [History Confirmed 01/07/18] 2. Lovastatin [Altoprev] 20 mg PO BEDTIME 09/15/17 [History Confirmed 01/07/18] 3. Metformin HCl 500 mg PO BID 09/15/17 [History Confirmed 01/07/18] 4. Chlorthalidone 25 mg PO DAILY 01/07/18 [History Confirmed 01/07/18] 5. Enoxaparin(*) [Lovenox(*)] 150 mg SQ Q12H 01/07/18 [History Confirmed ] Allergies: No known allergies Social History: Patient lives alone and has an aide. No smoking or alcohol use history. ROS: Full ROS completed. Pertinent findings stated in HPI and all others negative. Physical Exam: Vital Signs: Temp Pulse Resp BP Pulse Ox 97.9 F 70 20 131/39 96 01/09/18 15:26 01/09/18 15:26 01/09/18 15:26 01/09/18 15:26 01/09/18 15:26 General: Alert and laying comfortably in bed. Oriented to person, place and time. HEENT: Head is normocephalic and atraumatic. PERRL, EOMI. Mild hearing loss. Moist mucus membranes. Neck: Supple and symmetric. Nontender to palpation. CV: Radial pulses 2+ bilaterally. Pedal edema bilaterally. Pedal pulses difficult to palpate. Lungs: Breathing is nonlabored. Abdomen: The abdomen is obese. Neuro: Speech is clear. Answers questions appropriately. CN II-XII intact. Strength in upper and lower extremities 5/5 although limited exam in lower extremities secondary to pain. Finger to nose coordination intact. No pronator drift. Imagin. CT brain on 01/07/18 shows cavernous angioma of cerebellum 2. MRI brain on 01/08/18 shows cavernous angioma of cerebellum Assessment and Plan: This is a 78 year old female who presented to the [facility] ED with dizziness upon standing. Cavernous angioma of the cerebellum incidentally found on CT brain. Unlikely contributing to dizziness. There is no indication for neurosurgical intervention or treatment. There is no contraindication to anticoagulation therapy of any form. This case has been discussed with Dr. Balderrama who also reviewed the CT.
[2018-01-09] MEDS: Enoxaparin(*) 150 MG/ML 1 ML SYRINGE SUBCUT SCH (17:25)
[2018-01-09] MEDS: Warfarin TAB(*) 3 MG PO SCH (17:25)
[2018-01-09] MEDS: Insulin LISPRO* 1 UNITS UNIT SUBCUT SCH (17:25)
[2018-01-09] MEDS: Atorvastatin* 10 MG TAB PO SCH (22:52)
[2018-01-10] MEDS: Meclizine TAB* 12.5 MG PO SCH ×3 (06:08→22:22)
[2018-01-10] MEDS: Enoxaparin(*) 150 MG/ML 1 ML SYRINGE SUBCUT SCH ×2 (06:08→17:43)
[2018-01-10 07:29] LABS: ABS Basophils 0.1 10^3/ul (0-0.2); ABS Eosinophils 0.2 10^3/ul (0-0.6); ABS Lymphocytes 2.3 10^3/ul (1.0-4.8); ABS Monocytes 0.6 10^3/ul (0-0.8); ABS Neutrophils 2.5 10^3/ul (1.5-7.7); ABS Nucleated RBC 0 10^3/ul; EGFR Non-African American 59.4 (>60); Eosinophil % 3.7 % (0-6); Hematocrit 41 % (35-47); Hemoglobin 14.4 g/dl (12.0-16.0); Lymphocyte % 40.6 % (25-47); Mean Corpuscular HGB Conc 35 g/dl (31-36); Mean Corpuscular Hemoglobin 35 pg (27-31); Mean Corpuscular Volume 98 fL (80-97); Mean Platelet Volume 7.4 um3 (7.4-10.4); Nucleated Red Blood Cells % 0.1; Platelet Count 193 10^3/ul (150-450); Red Blood Count 4.17 10^6/ul (4.00-5.40); Red Cell Distribution Width 13 % (10.5-15); White Blood Count 5.7 10^3/ul (3.5-10.8)
[2018-01-10 07:30] LABS: INR 1.03 (0.77-1.02)
[2018-01-10] MEDS: Insulin LISPRO* 1 UNITS UNIT SUBCUT SCH ×3 (08:03→17:19)
[2018-01-10] MEDS: Acetaminophen TAB* 325 MG PO PRN (10:09)
--- NOTE | 2018-01-10 10:32 | PN ---
NEUROLOGY PROGRESS NOTE: DATE OF SERVICE: 01/09/18 PRIMARY PROVIDER: Anjana Infante NP Neurology is following for the evaluation of dizziness and abnormal CT finding. SUBJECTIVE: Mrs. Faulkner is resting in bed comfortably. She is complaining of slight low back pain and discomfort. She prefers to be discharged home, then go to a rehab facility, but understands that she needs acute Rehab. She still has dizziness that seems to be improving. The dizziness is triggered by head positioning mostly when looking towards the left. She noticed less nausea sensation. She denied any headaches. She denied any chest pain, shortness of breath, or palpitations. REVIEW OF SYSTEMS: As per subject. CURRENT MEDICATIONS: Include: 1. Acetaminophen. 2. Atorvastatin. 3. Enoxaparin 135 mg subcutaneous injection every 12 hours. 4. Insulin Humalog. 5. Meclizine. 6. Ondansetron. 7. Warfarin 3 mg p.o. nightly. PHYSICAL EXAMINATION: Vital Signs: Temperature of 97.9, pulse of 70, respiratory rate of 20, oxygen saturation 96 on room air, and blood pressure is 131/39. General: This is a morbidly obese, chronically ill-appearing female who is nearly bed bound. Normocephalic, atraumatic. Eyes: Conjunctivae and cornea are clear. Supple and symmetrical neck without any carotid bruits. Psych : Affect is broad and normal mood. She is extremely happy and laughing throughout the history. Neurological Examination: Mental status: Awake and alert; oriented to person, place, time, and general circumstance. She has no nystagmus today where there was a mild nystagmus towards the left yesterday. Sensation is intact in the forehead, cheeks, and jaw region bilaterally. There is no fascial droop. She moves all upper extremities without any focal weakness. She had restricted movements of the lower extremity due to back pain today. She is afebrile. She has chronic back pain, this is not a new problem. Sensation is intact throughout the proximal and distal extremity expect for there is a sensory gradient demarcated at the knees bilaterally. LABORATORY FINDINGS: This was from 01/09/18, WBC 5.9, hemoglobin 14.7, hematocrit of 43. Sodium of 137, glucose of 158, creatinine 1.02. No new intracranial images were done. ASSESSMENT: 1. Mrs. Faulkner is a pleasant 78-year-old female who I suspect has peripheral vertigo possibly related to vestibular dysfunction and a benign positional paroxysmal vertigo. This has improved slightly with time and meclizine. I do not suspect this is related to a central vertigo given the semiology and the duration of the symptoms. I recommend outpatient vestibular rehab by a trained physical therapist that can perform Florentino maneuvers. Balance training is not indicated given that the patient is nearly wheelchair/bed bound. 2. Incidental finding of cavernous malformation. I reviewed neurosurgical consultation. The patient can be restarted on anticoagulation therapy for her saddle embolism. I do agree on Coumadin therapy given the importance and close monitoring rather than proceeding with Lovenox. Bridging therapy is appropriate in this case. I do recommend obtaining a CT of the head at least within 10 days to make sure there has been no change in the cavernous malformation which I do not suspect there will be. I also recommend the patient should follow up as an outpatient with a neurosurgical specialist to have future repeat imaging to further evaluate the lesion. 3. Generalized fatigue - I was unable to find any metabolic cause for the fatigue. Her vitamin B12 level was 460 and TSH is 1.22 which are all within normal range. I encouraged the patient to exercise or increase her functional ability. Also she can be evaluated as an outpatient for possible obstructive sleep apnea. I do not have any further recommendations. I will sign off, but I am available for any further questions or concerns. [id number]/[facility] #: [id number] VIANEY
[2018-01-10] MEDS: Warfarin TAB(*) 3 MG PO SCH (17:43)
--- NOTE | 2018-01-10 18:24 | PN ---
Subjective Date of Service: 01/10/18 Interval History: Patient reports she is feeling much better today for the first in a week reporting her dizziness is much much better "almost resolved". Per PT when she got OOB she was a little dizzy and unstable on her feet but may be close to her baseline as she is only a stand and pivot. Pt feels a little weak but feels close to her baseline Objective Active Medications: Acetaminophen (Tylenol Tab*) 650 mg PO Q6H PRN PRN Reason: HEADACHE Last Admin: 01/10/18 10:09 Dose: 650 mg Atorvastatin Calcium (Lipitor*) 5 mg PO BEDTIME BROCK Last Admin: 01/09/18 22:52 Dose: 5 mg Dextrose (D50w Syringe 50 Ml*) 12.5 gm IV PUSH .FOR FS < 60 - SS PRN PRN Reason: FS < 60 Docusate Sodium (Colace Cap*) 100 mg PO DAILY PRN PRN Reason: CONSTIPATION Enoxaparin Sodium (Lovenox(*)) 135 mg SUBCUT Q12H [facility] Last Admin: 01/10/18 17:43 Dose: 135 mg Insulin Human Lispro (Humalog*) 0 units SUBCUT AC [facility]; Protocol Last Admin: 01/10/18 17:19 Dose: Not Given Magnesium Hydroxide (Milk Of Magnesia Liq*) 30 ml PO Q4H PRN PRN Reason: CONSTIPATION Meclizine HCl (Antivert Tab*) 12.5 mg PO Q8HR [facility] Last Admin: 01/10/18 14:24 Dose: 12.5 mg Ondansetron HCl (Zofran 40 Mg Vial*) 4 mg IV Q6H PRN PRN Reason: NAUSEA/VOMITING Last Admin: 01/08/18 13:37 Dose: 4 mg Warfarin Sodium (Coumadin Tab(*)) 3 mg PO DAILY@1700 BROCK; Protocol Last Admin: 01/10/18 17:43 Dose: 3 mg Vital Signs - 8 hr 01/10/18 01/10/18 11:33 15:33 Temperature 97.9 F 97.5 F Pulse Rate 71 61 Respiratory 19 22 Rate Blood Pressure 101/34 118/78 (mmHg) O2 Sat by Pulse 98 96 Oximetry Oxygen Devices in Use Now: None Appearance: mosbidly obese female laying in bed in NAD. A+Ox3 Eyes: No Scleral Icterus, PERRLA Ears/Nose/Mouth/Throat: NL Teeth, Lips, Gums, Mucous Membranes Moist Neck: NL Appearance and Movements; NL JVP Respiratory: Symmetrical Chest Expansion and Respiratory Effort, Clear to Auscultation Cardiovascular: NL Sounds; No Murmurs; No JVD, RRR Abdominal: NL Sounds; No Tenderness; No Distention, - - obese Extremities: No Clubbing, Cyanosis Skin: No Rash or Ulcers, No Nodules or Sclerosis Neurological: Alert and Oriented x 3, NL Sensation, NL Muscle Strength and Tone Lines/Tubes/Other Access: Clean, Dry and Intact Peripheral IV Nutrition: Taking PO's Result Diagrams: 01/10/18 06:59 01/10/18 06:59 Assess/Plan/Problems-Billing Assessment: Ms. Solo is a 78 yo female with hx of morbid obesity, CAD with hx of NSTEMI, PAD, recent saddle PE in Aug 2017 with tPA x2 at [facility] on lovenox, DMII, HTN, s/p left leg stent for PAD who presented to [facility] ER on 01/07 for c/o dizziness and was found to have an abnormal CT and was transferred to [place] - Patient Problems (1) Dizziness Comment: - Much improved today suspect it is related to starting meclizine yesterday - patient OOB for first time in days this afternoon. - appreciate neurology consult - suspects peripheral vertigo recommending Florentino maneuver as outpt with PT if doesnt resolved. - MRI showing cavernous angionoma (incidental finding), NS reviewed films. No contraindication to anticoagulation of any kind. - Continue Meclazine scheduled. - PT following - will see again tomorrow (2) ARF (acute renal failure) Comment: - Resolved with IVFs (3) Pulmonary embolism Comment: - Hx of saddle PE with tPA x2 in Aug 2017, was DC home from [facility] on Lovenox BID for 3-6 months and the plan per patient was to start a different agent. Discussed coumadin with pt and daughter. the plan will be to bridge coumadin with lovenox. Will require VNS services for INR draws as she is fairly homebound (4) DM (diabetes mellitus) Comment: - HgA1C 6.5 - FSBG AC with Lispro SS - Hold Metformin (5) HTN (hypertension) Comment: - Hold parameters on lisinopril and chlorthalidone, d/t soft BPs. (6) Morbid obesity (7) DVT prophylaxis Comment: coumadin lovenox bridge (8) Full code status Status and Disposition: Inpatient. PT to eval to determine status, her baseline is stand and pivot. She may be able to go home but is open to subacute if required.
[2018-01-10] MEDS: Docusate CAP* 100 MG PO PRN ×2 (18:41→22:21)
[2018-01-10] MEDS: Magnesium Hydroxide LIQ* 30 ML UDC PO PRN ×2 (18:41→22:23)
[2018-01-10] MEDS: Atorvastatin* 10 MG TAB PO SCH (22:21)
[2018-01-11] MEDS: Meclizine TAB* 12.5 MG PO SCH ×2 (05:44→14:48)
[2018-01-11] MEDS: Enoxaparin(*) 150 MG/ML 1 ML SYRINGE SUBCUT SCH (05:44)
[2018-01-11 05:58] LABS: INR 1.05 (0.77-1.02)
[2018-01-11] MEDS: Insulin LISPRO* 1 UNITS UNIT SUBCUT SCH ×2 (08:25→12:24)
[2018-01-11 12:52] VITALS: BP 132/50
--- NOTE | 2018-01-11 13:38 | PN ---
Subjective Date of Service: 01/11/18 Interval History: Ms. Faulkner states that she is feeling well. She has no further dizziness. She is eager for discharge. Objective Active Medications: Acetaminophen (Tylenol Tab*) 650 mg PO Q6H PRN Atorvastatin Calcium (Lipitor*) 5 mg PO BEDTIME BROCK Dextrose (D50w Syringe 50 Ml*) 12.5 gm IV PUSH .FOR FS < 60 - SS PRN Docusate Sodium (Colace Cap*) 100 mg PO DAILY PRN Enoxaparin Sodium (Lovenox(*)) 135 mg SUBCUT Q12H BROCK Insulin Human Lispro (Humalog*) 0 units SUBCUT AC BROCK; Protocol Magnesium Hydroxide (Milk Of Magnesia Liq*) 30 ml PO Q4H PRN Meclizine HCl (Antivert Tab*) 12.5 mg PO Q8HR BROCK Ondansetron HCl (Zofran 40 Mg Vial*) 4 mg IV Q6H PRN Warfarin Sodium (Coumadin Tab(*)) 3 mg PO DAILY@1700 BROCK; Protocol Vital Signs: Temp Pulse Resp BP Pulse Ox 97.6 F 72 20 132/50 95 01/11/18 11:36 01/11/18 11:36 01/11/18 11:36 01/11/18 11:36 01/11/18 11:36 Oxygen Devices in Use Now: None Appearance: Elderly female sitting up in chair in NAD Eyes: No Scleral Icterus Ears/Nose/Mouth/Throat: Mucous Membranes Moist Neck: Trachea Midline Respiratory: Symmetrical Chest Expansion and Respiratory Effort, Clear to Auscultation Cardiovascular: NL Sounds; No Murmurs; No JVD, No Edema Abdominal: NL Sounds; No Tenderness; No Distention Lymphatic: No Cervical Adenopathy Extremities: No Edema Skin: No Rash or Ulcers Neurological: Alert and Oriented x 3, NL Muscle Strength and Tone Nutrition: Taking PO's Result Diagrams: 01/10/18 06:59 01/10/18 06:59 Assess/Plan/Problems-Billing Assessment: Ms. Faulkner is a 78 yo female with hx of morbid obesity, CAD with hx of NSTEMI, PAD, recent saddle PE in Aug 2017 with tPA x2 at [facility] on lovenox, DMII, HTN, s/p left leg stent for PAD who presented to [facility] on 01/07 for c/o dizziness and was found to have an abnormal CT and was transferred to [facility] - Patient Problems (1) Dizziness Comment: - Resolved. - MRI showing cavernous angionoma (incidental finding), NS reviewed films. No contraindication to anticoagulation of any kind. Appreciate neurology consult , recommends repeat CT brain in 7-10 days. - Continue Meclizine scheduled. (2) DM (diabetes mellitus) Comment: - HgA1C 6.5 - Resume metformin. (3) Pulmonary embolism Comment: - Hx of saddle PE with tPA x2 in Aug 2017, was DC home from [facility] on Lovenox BID for 3-6 months and the plan per patient was to start a different agent. Discussed coumadin with pt and daughter. the plan will be to bridge coumadin with lovenox. Will require VNS services for INR draws as she is fairly homebound (4) HTN (hypertension) Comment: - Hold lisinopril and chlorthalidone until follow up with PCP on Monday. (5) Dyslipidemia Comment: - Continue atorvastatin. (6) DVT prophylaxis Comment: coumadin lovenox bridge (7) Full code status Comment: Status and Disposition: Inpatient. Discharge to home.
[2018-01-11] MEDS: Acetaminophen TAB* 325 MG PO PRN (15:12)
--- NOTE | 2018-01-12 04:29 | DS ---
AMENDED REPORT NOW INCLUDES COSIGNER DESIGNATION CC: Dr. Pablo * HOSPITAL MEDICINE DISCHARGE SUMMARY: DATE OF ADMISSION: 01/07/18 DATE OF DISCHARGE: 01/11/18 PRIMARY CARE PHYSICIAN: Dr. Pablo. ATTENDING PHYSICIAN: Dr. Gilberto Pinto * (dictation provided by Mini Henao NP) PRIMARY DIAGNOSIS: Vertigo, peripheral. SECONDARY DIAGNOSES: 1. 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 2. Recent diagnosis of pulmonary embolism, August 2017, status post tPA x2 with current anticoagulation with Lovenox and Coumadin. 3. Hypertension. 4. Type 2 diabetes. 5. Coronary artery disease with history of myocardial infarction. 6. Hemochromatosis. 7. History of appendectomy. 8. History of left leg stent placement for peripheral arterial disease. MEDICATIONS: 1. Warfarin 4 mg p.o. daily. 2. Lovenox 150 mg q.12 hours until INR between 2 and 3 for 24 hours. 3. Metformin 500 mg p.o. b.i.d. 4. Lovastatin 20 mg p.o. at bedtime. 5. Meclizine p.r.n. Hold lisinopril and chlorthalidone until followup with primary care physician. HOSPITAL COURSE: Ms. Faulkner is a 78-year-old female with a past medical history of recent diagnosis of saddle embolism, treated at [facility], on Lovenox therapy, who presented to the hospital at [place] on 01/08/18 with concern for headaches and dizziness. Please see the dictated H and P from Elvis Stroud MD, for complete details. In brief, the patient reported having headache and feeling quite dizzy and therefore, she went to [facility] where she had a CT of the brain that showed an irregular nodular mass in the central cerebellum. For that reason, she was sent to [facility] for further evaluation and likely MRI of the brain. Ms. 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 No acute intracranial process is identified. The patient was seen in consultation by Dr. Delgado from Neurology. He felt that the MRI was most consistent with a slow- grade vascular malformation in the vermis. I refer you to his consultation report for complete details. He did recommend that the patient have consultation with neurosurgical services, which was undertaken on 01/09/18 and they agreed that there was no indication for neurosurgical intervention and that this finding was not contributing to her dizziness. Ms. Faulkner had complained of dizziness at any time when she would move her head consistent with a peripheral source for her vertigo, especially given her negative MRI brain. She also had mild nystagmus to the left with end-gaze testing. The patient was treated with meclizine and also had Florentino maneuver with Dr. Delgado. With this, she has had resolution of her vertigo. She has also been assessed by Physical Therapy and is independent with mobility and at baseline. Ms. Faulkner is medically stable for discharge to home. On arrival, the patient was on Lovenox b.i.d. in treatment of a pulmonary embolism that was diagnosed in August. We have started to undertake the process of bridging her to Coumadin therapy. Her INR today is 1.05. She has been on Coumadin 3 mg for a total of 2 doses and now I am increasing to 4 mg. She will have VNS come into the home to check her INR routinely with results all forwarded to Dr. Pablo for continued management. The patient should be on Lovenox bridge until the INR is between [address] Delgado recommended that the patient have a repeat followup CT brain in 7 to 10 days to reevaluate for any bleed while on anticoagulation. During this hospitalization, Ms. Faulkner has had her lisinopril and chlorthalidone held. With this, her blood pressure has been running 90s to 130s. I am recommending that she continue to hold these 2 medications until she follows up with her primary care physician. Ms. Faulkner is medically stable for discharge to home. DISPOSITION: Home. DIET: Low fat, low salt, consistent carbohydrate. ACTIVITY: As tolerated. FOLLOWUP PLANS: Please follow up with Dr. Pablo regarding ongoing management of INR with history of PE and management of vertigo with request for followup CT brain in 7 to 10 days as well as adjustment of blood pressure medications as needed. TIME SPENT: Approximately 60 minutes was spent on the discharge of this patient , more than half the time spent with the patient at the bedside reviewing the events leading up to this hospitalization and during this hospitalization, performing the physical examination, and reviewing my plan of care. MINI HENAO, MINOO [id number]/[facility] #: [id number] [facility]ITAL[facility]
== END 2018-01-11 15:25 | disposition home or self-care (01) | DRG 149 ==
LOC: ED 06:33 → MED 13:35 → OBSVTOIN 01-08 15:45
PROVIDERS: ADMIT Internal Medicine; ATTEND Internal Medicine
DX: H81.399 Other peripheral vertigo, unspecified ear (principal); N17.9 Acute kidney failure, unspecified; E11.51 Type 2 diabetes mellitus with diabetic peripheral angiopathy without gangrene; I10 Essential (primary) hypertension; I25.10 Atherosclerotic heart disease of native coronary artery without angina pectoris; R40.2362 Coma scale, best motor response, obeys commands, at arrival to emergency department; R40.2142 Coma scale, eyes open, spontaneous, at arrival to emergency department; R40.2252 Coma scale, best verbal response, oriented, at arrival to emergency department; R29.700 NIHSS score 0; H55.00 Unspecified nystagmus; E66.01 Morbid (severe) obesity due to excess calories; R53.83 Other fatigue; D18.09 Hemangioma of other sites; E11.42 Type 2 diabetes mellitus with diabetic polyneuropathy; E83.119 Hemochromatosis, unspecified; Z82.49 Family history of ischemic heart disease and other diseases of the circulatory system; Q28.2 Arteriovenous malformation of cerebral vessels; Z68.41 Body mass index [BMI] 40.0-44.9, adult; I25.2 Old myocardial infarction; Z86.711 Personal history of pulmonary embolism; Z95.820 Peripheral vascular angioplasty status with implants and grafts; Z86.718 Personal history of other venous thrombosis and embolism; Z79.01 Long term (current) use of anticoagulants; Z79.84 Long term (current) use of oral hypoglycemic drugs
CPT/HCPCS: 36415; 70553; 80048; 80053; 82248; 82607; 83036; 83735; 84100; 84443; 85014; 85018; 85025; 85049; 85610; 99284; A9270-GY; A9579; G0378; G8978-GP-CL; G8979-GP-CK; G8987-GO-CI; G8988-GO-CI; G8989-GO-CI; J1650; J2270; J2405; J2765; J3475

== ENCOUNTER 2020-03-06 10:27 | Inpatient (IN) ==
[2020-03-06 12:25] LABS: ABS Lymphocytes 2.1 10^3/ul (1.0-4.8); ABS Monocytes 0.6 10^3/ul (0-0.8); Eosinophil % 0.3 %; Hematocrit 39 % (35-47); Hemoglobin 13.9 g/dL (12.0-16.0); Lymphocyte % 36.2 %; Mean Corpuscular HGB Conc 35 g/dL (31-36); Mean Corpuscular Hemoglobin 35 pg (27-31); Mean Corpuscular Volume 99 fL (80-97); Mean Platelet Volume 7.6 fL (7.4-10.4); Nucleated Red Blood Cells % 0.1; Platelet Count 145 10^3/uL (150-450); Red Blood Count 3.96 10^6 /uL (3.70-4.87); Red Cell Distribution Width 13 % (10-15); White Blood Count 5.7 10^3/uL (3.5-10.8)
[2020-03-06 12:44] LABS: Albumin/Globulin Ratio 1.1 (1-3); BUN/Creatinine Ratio 23.5 (8-20); CRP High Sensitivity 1.87 mg/L (<2.00); Calcium 9.7 mg/dL (8.6-10.3); EGFR African American 66.4 (>60); EGFR Non-African American 54.9 (>60); Globulin 3.6 g/dL (2-4); Potassium 4.3 mmol/L (3.5-5.0); Total Bilirubin 0.8 mg/dL (0.2-1.0); Total Protein 7.6 g/dL (6.4-8.9)
[2020-03-06 12:45] LABS: Troponin I 0.01 ng/mL (<0.03)
[2020-03-06 13:56] LABS: Erythrocyte Sed Rate 26 mm/Hr (0-29)
[2020-03-06 14:34] LABS: Urine Appearance Cloudy; Urine Bilirubin Negative (Negative); Urine Blood 3+ (Negative); Urine Color Yellow; Urine Glucose Negative (Negative); Urine Ketones Negative (Negative); Urine Nitrite Negative (Negative); Urine Protein 1+(30 mg/dL) (Negative); Urine Specific Gravity 1.019 (1.010-1.030); Urine Urobilinogen Negative (Negative)
[2020-03-06] MEDS ORDERED: Dextrose 50% Syringe 50 ml 25 GM/50 ML SYRINGE IV PUSH PRN (14:49)
[2020-03-06] MEDS ORDERED: Polyethylene Glycol 3350 17 GM PACKET PO PRN (14:50)
[2020-03-06] MEDS ORDERED: Magnesium Hydroxide LIQ 30 ML UDC PO PRN (14:50)
[2020-03-06 14:52] LABS: Urine Bacteria Absent (Absent); Urine Red Blood Cell 2+(6-10/hpf) (Absent); Urine Squamous Epithelial Cell Present (Absent); Urine White Blood Cell Trace(0-5/hpf) (Absent)
[2020-03-06 15:28] LABS: INR 1.92 (0.82-1.09)
[2020-03-06] MEDS: Magnesium Hydroxide LIQ 30 ML UDC PO SCH (21:23)
[2020-03-07 06:59] LABS: ABS Basophils 0.1 10^3/ul (0-0.2); ABS Eosinophils 0.1 10^3/ul (0-0.6); ABS Lymphocytes 2.4 10^3/ul (1.0-4.8); ABS Monocytes 0.7 10^3/ul (0-0.8); ABS Neutrophils 2.2 10^3/ul (1.5-7.7); Eosinophil % 1.3 %; Hematocrit 39 % (35-47); Hemoglobin 13.9 g/dL (12.0-16.0); Lymphocyte % 44.5 %; Mean Corpuscular HGB Conc 36 g/dL (31-36); Mean Corpuscular Hemoglobin 36 pg (27-31); Mean Corpuscular Volume 100 fL (80-97); Mean Platelet Volume 7.7 fL (7.4-10.4); Platelet Count 144 10^3/uL (150-450); Red Blood Count 3.88 10^6 /uL (3.70-4.87); Red Cell Distribution Width 12 % (10-15); White Blood Count 5.4 10^3/uL (3.5-10.8)
[2020-03-07 07:15] LABS: INR 2.07 (0.82-1.09)
[2020-03-07 07:18] LABS: BUN/Creatinine Ratio 27.4 (8-20); Calcium 9.4 mg/dL (8.6-10.3); EGFR African American 68.8 (>60); EGFR Non-African American 56.9 (>60); Potassium 4.5 mmol/L (3.5-5.0)
[2020-03-07] MEDS: Magnesium Hydroxide LIQ 30 ML UDC PO SCH ×2 (08:14→20:28)
[2020-03-07] MEDS ORDERED: oxyCODONE/Acetamin 10/325(NF) TAB PO PRN (11:44)
[2020-03-07] MEDS ORDERED: oxyCODONE/Acetamin 5/325 mg TAB PO PRN (11:51)
[2020-03-07] MEDS: Warfarin DAILY REMINDER **NOTE FOLLOW UP SCH (17:09)
[2020-03-07] MEDS ORDERED: Morphine 2 MG/ML SYRINGE IV ONE (22:53)
[2020-03-08] MEDS ORDERED: Morphine 2 MG/ML SYRINGE IV ONE (00:36)
[2020-03-08 06:34] LABS: INR 2.4 (0.82-1.09)
[2020-03-08 06:45] LABS: BUN/Creatinine Ratio 32.2 (8-20); Calcium 9.5 mg/dL (8.6-10.3); EGFR African American 53.6 (>60); EGFR Non-African American 44.3 (>60); Potassium 4.7 mmol/L (3.5-5.0)
[2020-03-08] MEDS: Magnesium Hydroxide LIQ 30 ML UDC PO SCH ×2 (08:51→21:38)
[2020-03-08] MEDS: Warfarin DAILY REMINDER **NOTE FOLLOW UP SCH (16:12)
[2020-03-09] MEDS: Senna TAB 8.6 mg TAB PO PRN (01:18)
[2020-03-09] MEDS ORDERED: HYDROmorphone 0.5 MG/0.5 ML SYRINGE IV ONE (03:50)
[2020-03-09 05:37] LABS: INR 2.74 (0.82-1.09)
[2020-03-09 05:47] LABS: BUN/Creatinine Ratio 34.1 (8-20); Calcium 9.4 mg/dL (8.6-10.3); EGFR African American 49.7 (>60); EGFR Non-African American 41.1 (>60); Potassium 4.8 mmol/L (3.5-5.0)
[2020-03-09] MEDS ORDERED: Potassium Chloride IV 40 MEQ in Lactated Ringers 1000 ml BAG 1,000 ML IVPB SCH (14:00)
[2020-03-09] MEDS: Warfarin DAILY REMINDER **NOTE FOLLOW UP SCH (17:20)
[2020-03-10] MEDS: Senna TAB 8.6 mg TAB PO PRN (00:19)
[2020-03-10] MEDS ORDERED: HYDROmorphone 0.5 MG/0.5 ML SYRINGE IV ONE (03:21)
[2020-03-10 08:00] LABS: BUN/Creatinine Ratio 41.5 (8-20); Calcium 9.2 mg/dL (8.6-10.3); EGFR African American 53.6 (>60); EGFR Non-African American 44.3 (>60); Magnesium 2.1 mg/dL (1.9-2.7)
[2020-03-10 08:05] LABS: Potassium 5.2 mmol/L (3.5-5.0)
[2020-03-10 08:12] LABS: INR 3.41 (0.82-1.09)
[2020-03-10] MEDS: Polyethylene Glycol 3350 17 GM PACKET PO SCH ×2 (12:56→20:10)
[2020-03-10] MEDS ORDERED: Warfarin per PHARMACY **NOTE FOLLOW UP SCH (15:00)
[2020-03-10] MEDS ORDERED: Warfarin - No Order Today **NOTE FOLLOW UP ONE (17:00)
[2020-03-10] MEDS: Warfarin DAILY REMINDER **NOTE FOLLOW UP SCH (17:31)
[2020-03-10] MEDS ORDERED: methylPREDNISolone ACETATE 40 mg/ml 1 ml VIAL **not IV INTRAARTIC ONE (19:09)
[2020-03-10] MEDS ORDERED: Bupivacaine 0.25% SDV PF 10 ML VIAL INJ ONE (19:30)
[2020-03-10] MEDS: Senna TAB 8.6 mg TAB PO SCH (20:08)
[2020-03-10] MEDS: Lidocaine Patch REMOVE PATCH PATCH OFF SCH (22:23)
[2020-03-11 08:10] LABS: CO2 Carbon Dioxide 22 mmol/L (22-32); Calcium 9.7 mg/dL (8.6-10.3); Chloride 103 mmol/L (101-111); Sodium 134 mmol/L (135-145)
[2020-03-11 08:15] LABS: BUN/Creatinine Ratio 35.6 (8-20); Blood Urea Nitrogen 37 mg/dL (6-24); EGFR Non-African American 51.3 (>60); Glucose 132 mg/dL (70-100)
[2020-03-11 08:18] LABS: Anion Gap 9 mmol/L (2-11)
[2020-03-11 08:24] LABS: INR 3.47 (0.82-1.09)
[2020-03-11] MEDS: Lidocaine PATCH 5% PATCH TRANSDERM SCH (08:53)
[2020-03-11] MEDS: Polyethylene Glycol 3350 17 GM PACKET PO SCH ×2 (08:54→22:05)
[2020-03-11] MEDS ORDERED: Warfarin - No Order Today **NOTE FOLLOW UP ONE (09:00)
[2020-03-11] MEDS: Warfarin DAILY REMINDER **NOTE FOLLOW UP SCH (19:12)
[2020-03-11] MEDS: Senna TAB 8.6 mg TAB PO SCH (22:06)
[2020-03-11] MEDS: Lidocaine Patch REMOVE PATCH PATCH OFF SCH (22:08)
[2020-03-12 07:28] LABS: BUN/Creatinine Ratio 39.8 (8-20); Calcium 9.6 mg/dL (8.6-10.3); EGFR African American 70.6 (>60); EGFR Non-African American 58.3 (>60)
[2020-03-12 07:49] LABS: Magnesium 1.8 mg/dL (1.9-2.7); Potassium 4.7 mmol/L (3.5-5.0)
[2020-03-12 07:55] LABS: INR 2.97 (0.82-1.09)
[2020-03-12] MEDS ORDERED: Magnesium Sulfate IV 1GM/100ML 1 GM/100 ML BAG IV ONE (07:58)
[2020-03-12 08:04] VITALS: BP 130/50
[2020-03-12] MEDS: Lidocaine PATCH 5% PATCH TRANSDERM SCH (08:25)
[2020-03-12] MEDS: Polyethylene Glycol 3350 17 GM PACKET PO SCH (08:35)
== END 2020-03-12 11:45 | DRG 292 ==
LOC: ED 10:27 → MEDTELE 10:27
PROVIDERS: ADMIT Internal Medicine; ATTEND Internal Medicine

== ENCOUNTER 2020-09-16 19:30 | Inpatient (IN) ==
[2020-09-16] MEDS ORDERED: NS 0.9% 1000 ml BAG 1,000 ML IV ONE (21:09)
[2020-09-16 21:49] LABS: ABS Basophils 0.1 10^3/ul (0-0.2); ABS Monocytes 0.8 10^3/ul (0-0.8); ABS Neutrophils 7.8 10^3/ul (1.5-7.7); Eosinophil % 0.3 %; Hematocrit 37 % (35-47); Hemoglobin 12.9 g/dL (12.0-16.0); Mean Corpuscular HGB Conc 35 g/dL (31-36); Mean Corpuscular Hemoglobin 34 pg (27-31); Mean Corpuscular Volume 98 fL (80-97); Mean Platelet Volume 6.9 fL (7.4-10.4); Nucleated Red Blood Cells % 0.1; Platelet Count 344 10^3/uL (150-450); Red Blood Count 3.76 10^6 /uL (3.70-4.87); Red Cell Distribution Width 15 % (10-15); White Blood Count 10.8 10^3/uL (3.5-10.8)
[2020-09-16 22:03] LABS: Albumin 2.8 g/dL (3.2-5.2); Albumin/Globulin Ratio 0.7 (1-3); BUN/Creatinine Ratio 12.5 (8-20); C Reactive Protein 79.38 mg/L (<8.01); Calcium 8.2 mg/dL (8.6-10.3); EGFR African American 83.9 (>60); EGFR Non-African American 69.4 (>60); Globulin 4.2 g/dL (2-4); Magnesium 1.3 mg/dL (1.9-2.7); Potassium 3.2 mmol/L (3.5-5.0); Total Bilirubin 0.7 mg/dL (0.2-1.0)
[2020-09-16 22:52] LABS: INR 5.68 (0.82-1.09)
[2020-09-16] MEDS ORDERED: Potassium Chlor 10 meq TAB PO ONE (22:54)
[2020-09-16] MEDS ORDERED: Dextrose 50% Syringe 50 ml 25 GM/50 ML SYRINGE IV PUSH PRN (22:54)
[2020-09-16] MEDS ORDERED: Magnesium Sulfate 2 gm BAG 2 GM/50 ML BAG IVPB ONE (22:54)
[2020-09-16] MEDS ORDERED: Lidocaine PATCH 5% PATCH TRANSDERM PRN (22:58)
[2020-09-16] MEDS: KCL 10 MEQ/50 ML IVPREMIX 10 MEQ/50 ML BAG IV SCH (23:24)
[2020-09-16] MEDS: Ondansetron 4 mg VIAL 2 MG/ML 2 ml VIAL IV PRN (23:24)
[2020-09-16 23:27] LABS: Urine Appearance Clear; Urine Bilirubin Negative (Negative); Urine Blood 2+ (Negative); Urine Color Yellow; Urine Glucose Negative (Negative); Urine Ketones Negative (Negative); Urine Nitrite Negative (Negative); Urine Protein Negative (Negative); Urine Specific Gravity 1.023 (1.010-1.030); Urine Urobilinogen Positive (Negative)
[2020-09-16 23:30] LABS: Urine Bacteria Absent (Absent); Urine Red Blood Cell 3+(>10/hpf) (Absent); Urine Squamous Epithelial Cell Present (Absent); Urine White Blood Cell Trace(0-5/hpf) (Absent)
[2020-09-16 23:35] LABS: Troponin I 0.02 ng/mL (<0.03)
[2020-09-17] MEDS: NS 0.9% 1000 ml BAG 1,000 ML IV SCH (02:16)
[2020-09-17 02:47] LABS: Hematocrit 35 % (35-47)
[2020-09-17] MEDS: KCL 10 MEQ/50 ML IVPREMIX 10 MEQ/50 ML BAG IV SCH (04:14)
[2020-09-17] MEDS ORDERED: Iodixanol (CONTRAST) 320 MG/ML 100 ML SDV IV ONE ×2 (05:46→14:32)
[2020-09-17 06:24] LABS: ABS Lymphocytes 1.7 10^3/ul (1.0-4.8); ABS Monocytes 0.9 10^3/ul (0-0.8); ABS Neutrophils 8.8 10^3/ul (1.5-7.7); Eosinophil % 0.2 %; Hematocrit 35 % (35-47); Hemoglobin 11.8 g/dL (12.0-16.0); Mean Corpuscular HGB Conc 34 g/dL (31-36); Mean Corpuscular Hemoglobin 33 pg (27-31); Mean Corpuscular Volume 98 fL (80-97); Mean Platelet Volume 6.9 fL (7.4-10.4); Nucleated Red Blood Cells % 0.1; Platelet Count 320 10^3/uL (150-450); Red Blood Count 3.59 10^6 /uL (3.70-4.87); Red Cell Distribution Width 14 % (10-15); White Blood Count 11.5 10^3/uL (3.5-10.8)
[2020-09-17 06:36] LABS: BUN/Creatinine Ratio 13.1 (8-20); Calcium 7.9 mg/dL (8.6-10.3); EGFR African American 114.8 (>60); EGFR Non-African American 94.9 (>60); Magnesium 1.7 mg/dL (1.9-2.7); Potassium 3.6 mmol/L (3.5-5.0)
[2020-09-17 06:38] LABS: Troponin I 0.02 ng/mL (<0.03)
[2020-09-17 07:04] LABS: INR 5.64 (0.82-1.09)
[2020-09-17] MEDS: Ondansetron 4 mg VIAL 2 MG/ML 2 ml VIAL IV PRN (12:17)
[2020-09-17] MEDS: Phytonadione Oral Solution 5 MG/25 ML UDC PO ONE ×2 (15:07→15:41)
[2020-09-17] MEDS ORDERED: PEG 3000 GI LAVAGE 1 GALLON PO ONE (18:49)
[2020-09-17] MEDS: CMC:Lovastatin 10 mg TAB (NF) PO SCH (20:45)
[2020-09-17] MEDS: Miconazole TOPICAL CREAM 2% 30 GM TOPICAL SCH (20:45)
[2020-09-18] MEDS ORDERED: Lidocaine Patch REMOVE PATCH PATCH OFF ONE
[2020-09-18 06:54] LABS: ABS Basophils 0.1 10^3/ul (0-0.2); ABS Eosinophils 0.1 10^3/ul (0-0.6); ABS Monocytes 0.8 10^3/ul (0-0.8); ABS Neutrophils 6.6 10^3/ul (1.5-7.7); Eosinophil % 0.7 %; Hematocrit 34 % (35-47); Hemoglobin 11.5 g/dL (12.0-16.0); Lymphocyte % 20.6 %; Mean Corpuscular HGB Conc 34 g/dL (31-36); Mean Corpuscular Hemoglobin 33 pg (27-31); Mean Corpuscular Volume 99 fL (80-97); Mean Platelet Volume 6.9 fL (7.4-10.4); Platelet Count 313 10^3/uL (150-450); Red Blood Count 3.46 10^6 /uL (3.70-4.87); Red Cell Distribution Width 14 % (10-15); White Blood Count 9.5 10^3/uL (3.5-10.8)
[2020-09-18 07:05] LABS: INR 2.33 (0.82-1.09)
[2020-09-18] MEDS: Miconazole TOPICAL CREAM 2% 30 GM TOPICAL SCH ×2 (07:18→20:17)
[2020-09-18 07:26] LABS: BUN/Creatinine Ratio 14.5 (8-20); Calcium 7.8 mg/dL (8.6-10.3); EGFR African American 129.3 (>60); EGFR Non-African American 106.9 (>60); Magnesium 1.2 mg/dL (1.9-2.7)
[2020-09-18 07:29] LABS: Carcinoembryonic Antigen 2.8 ng/mL (0.1-5.0)
[2020-09-18] MEDS ORDERED: PEG 3000 GI LAVAGE 1 GALLON PO ONE (16:00)
[2020-09-18] MEDS ORDERED: Phytonadione IV (Adult) 2.5 MG in NS 0.9% 50 ML 50 ML IV ONE (16:00)
[2020-09-18 16:57] LABS: BUN/Creatinine Ratio 14.8 (8-20); Calcium 8.1 mg/dL (8.6-10.3); EGFR African American 114.8 (>60); EGFR Non-African American 94.9 (>60); Potassium 3.4 mmol/L (3.5-5.0)
[2020-09-18] MEDS: Nystatin TOP POWDER 15 GM BTL TOPICAL SCH ×2 (17:12→20:16)
[2020-09-18 17:29] LABS: INR 1.76 (0.82-1.09)
[2020-09-18] MEDS: CMC:Lovastatin 10 mg TAB (NF) PO SCH (20:16)
[2020-09-18] MEDS ORDERED: Heparin 5000 UNITS/ML 1 mL VIAL IV SCH (21:00)
[2020-09-18 21:40] LABS: ABS Basophils 0.1 10^3/ul (0-0.2); ABS Eosinophils 0.1 10^3/ul (0-0.6); ABS Lymphocytes 2.1 10^3/ul (1.0-4.8); ABS Monocytes 0.7 10^3/ul (0-0.8); ABS Neutrophils 7.1 10^3/ul (1.5-7.7); Eosinophil % 1.1 %; Hematocrit 33 % (35-47); Hemoglobin 11.8 g/dL (12.0-16.0); Lymphocyte % 20.4 %; Mean Corpuscular HGB Conc 35 g/dL (31-36); Mean Corpuscular Hemoglobin 35 pg (27-31); Mean Corpuscular Volume 98 fL (80-97); Mean Platelet Volume 6.7 fL (7.4-10.4); Platelet Count 319 10^3/uL (150-450); Red Cell Distribution Width 14 % (10-15)
[2020-09-18 21:50] LABS: Activated Partial Thrombo Time 29.9 seconds (26.0-38.0)
[2020-09-18 21:56] LABS: EGFR African American 119.3 (>60); EGFR Non-African American 98.6 (>60)
[2020-09-18 23:16] LABS: INR 1.66 (0.82-1.09)
[2020-09-18] MEDS: Heparin DRIP 25,000 UNITS BAG 25,000 UNITS/500 ML BAG IV SCH (23:25)
[2020-09-18] MEDS ORDERED: Potassium Chlor 20 meq TAB.ER PO ONE (23:58)
[2020-09-19 06:09] LABS: ABS Basophils 0.1 10^3/ul (0-0.2); ABS Lymphocytes 1.8 10^3/ul (1.0-4.8); ABS Monocytes 0.8 10^3/ul (0-0.8); ABS Neutrophils 7.6 10^3/ul (1.5-7.7); Eosinophil % 0.5 %; Hematocrit 35 % (35-47); Hemoglobin 12.2 g/dL (12.0-16.0); Lymphocyte % 17.7 %; Mean Corpuscular HGB Conc 35 g/dL (31-36); Mean Corpuscular Hemoglobin 34 pg (27-31); Mean Corpuscular Volume 99 fL (80-97); Mean Platelet Volume 6.9 fL (7.4-10.4); Nucleated Red Blood Cells % 0.1; Platelet Count 341 10^3/uL (150-450); Red Blood Count 3.57 10^6 /uL (3.70-4.87); Red Cell Distribution Width 14 % (10-15); White Blood Count 10.4 10^3/uL (3.5-10.8)
[2020-09-19 06:27] LABS: Albumin 2.4 g/dL (3.2-5.2); Albumin/Globulin Ratio 0.6 (1-3); Calcium 7.7 mg/dL (8.6-10.3); EGFR African American 124.1 (>60); EGFR Non-African American 102.6 (>60); Globulin 3.8 g/dL (2-4); Magnesium 1.2 mg/dL (1.9-2.7); Potassium 3.3 mmol/L (3.5-5.0); Total Bilirubin 0.7 mg/dL (0.2-1.0); Total Protein 6.2 g/dL (6.4-8.9)
[2020-09-19 06:35] LABS: Activated Partial Thrombo Time 47.5 seconds (26.0-38.0)
[2020-09-19] MEDS: Miconazole TOPICAL CREAM 2% 30 GM TOPICAL SCH ×2 (08:38→20:36)
[2020-09-19] MEDS: Nystatin TOP POWDER 15 GM BTL TOPICAL SCH ×3 (08:38→20:36)
[2020-09-19 09:56] LABS: INR 1.47 (0.82-1.09)
[2020-09-19] MEDS ORDERED: PEG 3000 GI LAVAGE 1 GALLON PO ONE (13:00)
[2020-09-19] MEDS: Heparin DRIP 25,000 UNITS BAG 25,000 UNITS/500 ML BAG IV SCH (15:40)
[2020-09-19] MEDS ORDERED: Potassium Chlor 20 meq TAB.ER PO ONE (17:33)
[2020-09-19] MEDS ORDERED: Magnesium Sulfate IV 3 GM in NS 0.9% 100 ml BAG 100 ML IVPB ONE (17:34)
[2020-09-19] MEDS: CMC:Lovastatin 10 mg TAB (NF) PO SCH (20:35)
[2020-09-20 04:53] LABS: ABS Basophils 0.1 10^3/ul (0-0.2); ABS Eosinophils 0.1 10^3/ul (0-0.6); ABS Lymphocytes 2.4 10^3/ul (1.0-4.8); ABS Monocytes 0.8 10^3/ul (0-0.8); ABS Neutrophils 8.6 10^3/ul (1.5-7.7); Eosinophil % 0.7 %; Hematocrit 38 % (35-47); Hemoglobin 12.8 g/dL (12.0-16.0); Lymphocyte % 19.8 %; Mean Corpuscular HGB Conc 34 g/dL (31-36); Mean Corpuscular Hemoglobin 33 pg (27-31); Mean Corpuscular Volume 99 fL (80-97); Mean Platelet Volume 6.9 fL (7.4-10.4); Nucleated Red Blood Cells % 0.1; Platelet Count 353 10^3/uL (150-450); Red Blood Count 3.83 10^6 /uL (3.70-4.87); Red Cell Distribution Width 15 % (10-15)
[2020-09-20 05:06] LABS: Blood Urea Nitrogen 7 mg/dL (6-24); EGFR African American 121.7 (>60); EGFR Non-African American 100.5 (>60)
[2020-09-20 05:07] LABS: % Iron Saturation 38 % (15-55); Iron 57 ug/dL (50-212); Total Iron Binding Capacity 151 mcg/dL (250-450); Transferrin 108 mg/dL (203-362); Unsaturated Iron Binding < 136 ug/dL
[2020-09-20 05:33] LABS: Vitamin B12 924 pg/mL (180-914)
[2020-09-20 06:22] LABS: Activated Partial Thrombo Time 92.1 seconds (26.0-38.0); INR 1.29 (0.82-1.09)
[2020-09-20] MEDS: Miconazole TOPICAL CREAM 2% 30 GM TOPICAL SCH ×2 (07:31→20:24)
[2020-09-20] MEDS: Nystatin TOP POWDER 15 GM BTL TOPICAL SCH ×3 (07:31→20:24)
[2020-09-20] MEDS ORDERED: Midazolam 10 mg/10 ml VIAL 1 mg/ml 10 ml VIAL (10 mg) ONE (12:25)
[2020-09-20] MEDS ORDERED: fentaNYL 100 mcg/2 ml 50 MCG/ML VIAL ONE (12:26)
[2020-09-20] MEDS ORDERED: Heparin DRIP 25,000 UNITS BAG 25,000 UNITS/500 ML BAG IV SCH (16:00)
[2020-09-20] MEDS: Heparin 5000 UNITS/ML 1 mL VIAL IV PRN (17:58)
[2020-09-20] MEDS: Heparin DRIP 25,000 UNITS BAG 25,000 UNITS/500 ML BAG IV SCH (17:58)
[2020-09-20] MEDS: CMC:Lovastatin 10 mg TAB (NF) PO SCH (20:22)
[2020-09-21 06:51] LABS: ABS Basophils 0.1 10^3/ul (0-0.2); ABS Eosinophils 0.1 10^3/ul (0-0.6); ABS Monocytes 0.9 10^3/ul (0-0.8); ABS Neutrophils 9.1 10^3/ul (1.5-7.7); Eosinophil % 0.9 %; Hematocrit 37 % (35-47); Hemoglobin 12.2 g/dL (12.0-16.0); Mean Corpuscular HGB Conc 33 g/dL (31-36); Mean Corpuscular Hemoglobin 33 pg (27-31); Mean Corpuscular Volume 98 fL (80-97); Mean Platelet Volume 6.7 fL (7.4-10.4); Platelet Count 312 10^3/uL (150-450); Red Blood Count 3.73 10^6 /uL (3.70-4.87); Red Cell Distribution Width 15 % (10-15); White Blood Count 12.2 10^3/uL (3.5-10.8)
[2020-09-21] MEDS: Miconazole TOPICAL CREAM 2% 30 GM TOPICAL SCH ×2 (08:01→20:36)
[2020-09-21] MEDS: Nystatin TOP POWDER 15 GM BTL TOPICAL SCH ×3 (08:01→20:37)
[2020-09-21] MEDS: Heparin DRIP 25,000 UNITS BAG 25,000 UNITS/500 ML BAG IV SCH (09:32)
[2020-09-21] MEDS: CMC:Lovastatin 10 mg TAB (NF) PO SCH (20:36)
[2020-09-22] MEDS: Heparin DRIP 25,000 UNITS BAG 25,000 UNITS/500 ML BAG IV SCH ×2 (01:36→16:26)
[2020-09-22 06:20] LABS: ABS Basophils 0.1 10^3/ul (0-0.2); ABS Eosinophils 0.1 10^3/ul (0-0.6); ABS Lymphocytes 2.3 10^3/ul (1.0-4.8); ABS Monocytes 0.9 10^3/ul (0-0.8); ABS Neutrophils 8.6 10^3/ul (1.5-7.7); Hematocrit 36 % (35-47); Hemoglobin 12.2 g/dL (12.0-16.0); Mean Corpuscular HGB Conc 34 g/dL (31-36); Mean Corpuscular Hemoglobin 33 pg (27-31); Mean Corpuscular Volume 99 fL (80-97); Platelet Count 313 10^3/uL (150-450); Red Blood Count 3.69 10^6 /uL (3.70-4.87); Red Cell Distribution Width 15 % (10-15)
[2020-09-22 06:32] LABS: Calcium 7.9 mg/dL (8.6-10.3)
[2020-09-22 06:38] LABS: BUN/Creatinine Ratio 12.7 (8-20); EGFR African American 129.3 (>60); EGFR Non-African American 106.9 (>60)
[2020-09-22] MEDS: Heparin 5000 UNITS/ML 1 mL VIAL IV PRN (07:10)
[2020-09-22] MEDS: Miconazole TOPICAL CREAM 2% 30 GM TOPICAL SCH ×2 (08:19→20:31)
[2020-09-22] MEDS: Nystatin TOP POWDER 15 GM BTL TOPICAL SCH ×3 (08:19→20:31)
[2020-09-22] MEDS ORDERED: Potassium Chloride LIQUID 20 MEQ/15 ML LIQUID PO ONE (09:19)
[2020-09-22 10:05] LABS: Magnesium 1.3 mg/dL (1.9-2.7)
[2020-09-22] MEDS ORDERED: Magnesium Sulf 4 GM/100 ML IV 4,000 MG/100 ML BAG IVPB ONE (16:00)
[2020-09-22] MEDS: CMC:Lovastatin 10 mg TAB (NF) PO SCH (20:30)
[2020-09-23 04:19] LABS: ABS Basophils 0.1 10^3/ul (0-0.2); ABS Lymphocytes 2.6 10^3/ul (1.0-4.8); ABS Monocytes 0.9 10^3/ul (0-0.8); ABS Neutrophils 7.8 10^3/ul (1.5-7.7); Eosinophil % 0.3 %; Hematocrit 34 % (35-47); Hemoglobin 11.7 g/dL (12.0-16.0); Lymphocyte % 22.7 %; Mean Corpuscular HGB Conc 34 g/dL (31-36); Mean Corpuscular Hemoglobin 33 pg (27-31); Mean Corpuscular Volume 98 fL (80-97); Mean Platelet Volume 7.2 fL (7.4-10.4); Platelet Count 312 10^3/uL (150-450); Red Blood Count 3.52 10^6 /uL (3.70-4.87); Red Cell Distribution Width 15 % (10-15); White Blood Count 11.3 10^3/uL (3.5-10.8)
[2020-09-23 04:34] LABS: BUN/Creatinine Ratio 12.3 (8-20); Calcium 7.7 mg/dL (8.6-10.3); EGFR African American 124.1 (>60); EGFR Non-African American 102.6 (>60); Magnesium 1.8 mg/dL (1.9-2.7); Potassium 2.8 mmol/L (3.5-5.0)
[2020-09-23] MEDS: NS 0.9% 1000 ml BAG 1,000 ML IV SCH ×2 (05:34→22:49)
[2020-09-23] MEDS: Nystatin TOP POWDER 15 GM BTL TOPICAL SCH ×3 (07:59→23:07)
[2020-09-23] MEDS: KCL 20 MEQ/100 ML IVPREMIX 20 MEQ/100 ML BAG IV SCH ×4 (07:59→23:17)
[2020-09-23] MEDS ORDERED: Magnesium Sulfate IV 3 GM in NS 0.9% 100 ml BAG 100 ML IVPB ONE (08:00)
[2020-09-23] MEDS: Miconazole TOPICAL CREAM 2% 30 GM TOPICAL SCH ×2 (08:00→23:07)
[2020-09-23 11:54] LABS: Urine Appearance Cloudy; Urine Bilirubin Negative (Negative); Urine Blood 1+ (Negative); Urine Color Yellow; Urine Glucose Negative (Negative); Urine Ketones Negative (Negative); Urine Nitrite Positive (Negative); Urine Protein Negative (Negative); Urine Urobilinogen Positive (Negative)
[2020-09-23 11:57] LABS: Urine Bacteria 1+ (Absent); Urine Red Blood Cell Trace(0-2/hpf) (Absent); Urine Squamous Epithelial Cell Present (Absent); Urine White Blood Cell 3+(>20/hpf) (Absent)
[2020-09-23] MEDS ORDERED: Ketamine HCL 50 mg/ml 10 ml VIAL (500 MG) ONE (13:20)
[2020-09-23] MEDS ORDERED: Dexamethasone IV 4 MG/ML VIAL 1 ml VIAL ONE (13:21)
[2020-09-23] MEDS ORDERED: Propofol 10 MG/ML 20 ML BTL ONE ×2 (13:21→13:39)
[2020-09-23] MEDS ORDERED: Ondansetron 4 mg VIAL 2 MG/ML 2 ml VIAL ONE (13:21)
[2020-09-23] MEDS ORDERED: Lidocaine 2% PF 5 ML VIAL ONE (13:23)
[2020-09-23] MEDS ORDERED: Rocuronium 50 mg VIAL 10 mg/ml 5 ml VIAL (50 mg) ONE ×2 (13:24→16:59)
[2020-09-23] MEDS ORDERED: fentaNYL 100 mcg/2 ml 50 MCG/ML VIAL ONE ×6 (13:30→20:44)
[2020-09-23 13:35] LABS: BUN/Creatinine Ratio 12.7 (8-20); Calcium 7.6 mg/dL (8.6-10.3); EGFR African American 129.3 (>60); EGFR Non-African American 106.9 (>60); Magnesium 2.4 mg/dL (1.9-2.7); Potassium 3.5 mmol/L (3.5-5.0)
[2020-09-23] MEDS ORDERED: Morphine 2 MG/ML SYRINGE IV PRN (14:19)
[2020-09-23] MEDS ORDERED: Calcium CHLORIDE 10% SYRINGE 1 GM/10 ML ONE (18:12)
[2020-09-23] MEDS ORDERED: Albumin Human 5% 12.5 GM/250 ML BTL IV ONE (19:00)
[2020-09-23] MEDS ORDERED: Acetaminophen IV 1 GM/100ML 100 ML ONE (19:02)
[2020-09-23] MEDS ORDERED: Naloxone 0.4 mg VIAL 0.4 mg/ml 1 ml VIAL IV PUSH PRN (19:42)
[2020-09-23] MEDS ORDERED: Morphine PCA ADULT 5 MG/ML 30 ML PCA SCH (19:45)
[2020-09-23] MEDS ORDERED: Naloxone 0.4 mg VIAL 0.4 mg/ml 1 ml VIAL IV PRN (20:19)
[2020-09-23] MEDS ORDERED: DiMENhydriNATE IV 50 mg/ml 1 ml VIAL IV PUSH PRN (20:19)
[2020-09-23] MEDS ORDERED: Ondansetron 4 mg VIAL 2 MG/ML 2 ml VIAL IV PRN (20:19)
[2020-09-23] MEDS: fentaNYL 100 mcg/2 ml 50 MCG/ML VIAL IV PRN ×2 (20:32→20:40)
[2020-09-23] MEDS: CMC:Lovastatin 10 mg TAB (NF) PO SCH (23:07)
[2020-09-24 02:52] LABS: Urine Appearance Turbid; Urine Bilirubin Negative (Negative); Urine Blood 1+ (Negative); Urine Color Amber; Urine Glucose Negative (Negative); Urine Ketones Trace (Negative); Urine Nitrite Negative (Negative); Urine Protein 2+(100 mg/dL) (Negative); Urine Specific Gravity 1.016 (1.010-1.030); Urine Urobilinogen Positive (Negative)
[2020-09-24 03:01] LABS: Urine Bacteria Absent (Absent); Urine Red Blood Cell 3+(>10/hpf) (Absent); Urine Squamous Epithelial Cell Present (Absent); Urine Transitional Epithelial Present (Absent); Urine White Blood Cell 3+(>20/hpf) (Absent)
[2020-09-24] MEDS ORDERED: NS 0.9% 1000 ml BAG 1,000 ML IV ONE (06:18)
[2020-09-24 06:41] LABS: ABS Lymphocytes 1.5 10^3/ul (1.0-4.8); ABS Monocytes 0.8 10^3/ul (0-0.8); Hematocrit 38 % (35-47); Hemoglobin 12.3 g/dL (12.0-16.0); Mean Corpuscular HGB Conc 33 g/dL (31-36); Mean Corpuscular Hemoglobin 33 pg (27-31); Mean Corpuscular Volume 102 fL (80-97); Mean Platelet Volume 6.9 fL (7.4-10.4); Platelet Count 265 10^3/uL (150-450); Red Blood Count 3.71 10^6 /uL (3.70-4.87); Red Cell Distribution Width 16 % (10-15); White Blood Count 15.3 10^3/uL (3.5-10.8)
[2020-09-24 07:01] LABS: BUN/Creatinine Ratio 7.9 (8-20); Calcium 8.3 mg/dL (8.6-10.3); EGFR African American 49.2 (>60); EGFR Non-African American 40.7 (>60); Magnesium 1.7 mg/dL (1.9-2.7); Potassium 4.2 mmol/L (3.5-5.0)
[2020-09-24] MEDS: cefTRIAXone 1 gm/50 mL NS BAG 1 GM/50 ML BAG IVPB SCH (08:49)
[2020-09-24] MEDS: Miconazole TOPICAL CREAM 2% 30 GM TOPICAL SCH ×2 (08:58→22:41)
[2020-09-24] MEDS: Nystatin TOP POWDER 15 GM BTL TOPICAL SCH ×3 (08:58→22:38)
[2020-09-24] MEDS ORDERED: Magnesium Sulfate 2 gm BAG 2 GM/50 ML BAG IVPB ONE (09:49)
[2020-09-24] MEDS ORDERED: Lactated Ringers 1000 ml BAG 1,000 ML IV SCH (11:00)
[2020-09-24] MEDS ORDERED: Morphine PCA ADULT 5 MG/ML 30 ML PCA SCH (12:34)
[2020-09-24 12:55] LABS: Ur Urea Nitrogen Concentration 63 mg/dL; Urine Creatinine Concentration 126.17 mg/dL; Urine Sodium Concentration < 18 mmol/L
[2020-09-24] MEDS ORDERED: Lactated Ringers 500 ml BAG 500 ML IV ONE (13:34)
[2020-09-24] MEDS: Heparin 5000 UNITS/ML 1 mL VIAL SUBCUT SCH ×2 (15:18→22:38)
[2020-09-24 15:50] LABS: ABS Lymphocytes 1.7 10^3/ul (1.0-4.8); ABS Monocytes 1.1 10^3/ul (0-0.8); ABS Neutrophils 12.7 10^3/ul (1.5-7.7); Hematocrit 37 % (35-47); Hemoglobin 11.7 g/dL (12.0-16.0); Lymphocyte % 10.9 %; Mean Corpuscular HGB Conc 32 g/dL (31-36); Mean Corpuscular Hemoglobin 33 pg (27-31); Mean Corpuscular Volume 103 fL (80-97); Mean Platelet Volume 7.1 fL (7.4-10.4); Platelet Count 243 10^3/uL (150-450); Red Blood Count 3.56 10^6 /uL (3.70-4.87); Red Cell Distribution Width 16 % (10-15); White Blood Count 15.5 10^3/uL (3.5-10.8)
[2020-09-24] MEDS: Lactated Ringers 1000 ml BAG 1,000 ML IV SCH ×2 (16:12→17:35)
[2020-09-24 16:26] LABS: Albumin 2.2 g/dL (3.2-5.2); Albumin/Globulin Ratio 0.6 (1-3); BUN/Creatinine Ratio 7.5 (8-20); Calcium 8.3 mg/dL (8.6-10.3); EGFR Non-African American 31.4 (>60); Globulin 3.5 g/dL (2-4); Potassium 4.4 mmol/L (3.5-5.0); Total Bilirubin 0.6 mg/dL (0.2-1.0); Total Protein 5.7 g/dL (6.4-8.9)
[2020-09-24] MEDS ORDERED: Lactated Ringers 1000 ml BAG 1,000 ML IV ONE ×2 (16:30→21:42)
[2020-09-24] MEDS: CMC:Lovastatin 10 mg TAB (NF) PO SCH (22:39)
[2020-09-25] MEDS: Lactated Ringers 1000 ml BAG 1,000 ML IV SCH (01:54)
[2020-09-25] MEDS: Heparin 5000 UNITS/ML 1 mL VIAL SUBCUT SCH (05:41)
[2020-09-25 06:55] LABS: ABS Lymphocytes 1.6 10^3/ul (1.0-4.8); ABS Monocytes 0.8 10^3/ul (0-0.8); ABS Neutrophils 12.7 10^3/ul (1.5-7.7); Eosinophil % 0.1 %; Hematocrit 32 % (35-47); Hemoglobin 10.3 g/dL (12.0-16.0); Lymphocyte % 10.8 %; Mean Corpuscular HGB Conc 33 g/dL (31-36); Mean Corpuscular Hemoglobin 33 pg (27-31); Mean Corpuscular Volume 102 fL (80-97); Mean Platelet Volume 7.5 fL (7.4-10.4); Nucleated Red Blood Cells % 0.1; Platelet Count 230 10^3/uL (150-450); Red Blood Count 3.09 10^6 /uL (3.70-4.87); Red Cell Distribution Width 16 % (10-15); White Blood Count 15.1 10^3/uL (3.5-10.8)
[2020-09-25 07:16] LABS: BUN/Creatinine Ratio 15.9 (8-20); EGFR African American 56.3 (>60); EGFR Non-African American 46.6 (>60); Magnesium 2.1 mg/dL (1.9-2.7); Potassium 4.1 mmol/L (3.5-5.0)
[2020-09-25] MEDS: cefTRIAXone 1 gm/50 mL NS BAG 1 GM/50 ML BAG IVPB SCH (09:55)
[2020-09-25] MEDS: Miconazole TOPICAL CREAM 2% 30 GM TOPICAL SCH ×2 (09:58→21:11)
[2020-09-25] MEDS: Nystatin TOP POWDER 15 GM BTL TOPICAL SCH ×3 (09:58→21:12)
[2020-09-25] MEDS ORDERED: Lactated Ringers 500 ml BAG 500 ML IV ONE (10:23)
[2020-09-25] MEDS ORDERED: Heparin 5000 UNITS/ML 1 mL VIAL IV PRN (11:00)
[2020-09-25] MEDS: Heparin DRIP 25,000 UNITS BAG 25,000 UNITS/500 ML BAG IV SCH (11:13)
[2020-09-25] MEDS: CMC:Lovastatin 10 mg TAB (NF) PO SCH (21:12)
[2020-09-25] MEDS ORDERED: Furosemide 20 mg/2 ml IV VIAL IV SLOW PU ONE (21:53)
[2020-09-25] MEDS ORDERED: Morphine PCA ADULT 5 MG/ML 30 ML PCA SCH (21:58)
[2020-09-26 02:51] LABS: Magnesium 1.9 mg/dL (1.9-2.7); Potassium 3.7 mmol/L (3.5-5.0)
[2020-09-26] MEDS: Heparin DRIP 25,000 UNITS BAG 25,000 UNITS/500 ML BAG IV SCH (04:27)
[2020-09-26 07:06] LABS: ABS Eosinophils 0.1 10^3/ul (0-0.6); ABS Lymphocytes 2.2 10^3/ul (1.0-4.8); ABS Monocytes 0.6 10^3/ul (0-0.8); ABS Neutrophils 9.1 10^3/ul (1.5-7.7); Eosinophil % 0.9 %; Hematocrit 29 % (35-47); Hemoglobin 9.5 g/dL (12.0-16.0); Lymphocyte % 18.1 %; Mean Corpuscular HGB Conc 33 g/dL (31-36); Mean Corpuscular Hemoglobin 34 pg (27-31); Mean Corpuscular Volume 102 fL (80-97); Mean Platelet Volume 7.2 fL (7.4-10.4); Nucleated Red Blood Cells % 0.1; Platelet Count 214 10^3/uL (150-450); Red Blood Count 2.84 10^6 /uL (3.70-4.87); Red Cell Distribution Width 16 % (10-15); White Blood Count 11.9 10^3/uL (3.5-10.8)
[2020-09-26 07:07] LABS: Albumin 1.9 g/dL (3.2-5.2); Albumin/Globulin Ratio 0.6 (1-3); Calcium 7.8 mg/dL (8.6-10.3); EGFR African American 87.7 (>60); EGFR Non-African American 72.5 (>60); Globulin 3.2 g/dL (2-4); Magnesium 1.8 mg/dL (1.9-2.7); Potassium 3.6 mmol/L (3.5-5.0); Total Bilirubin 0.6 mg/dL (0.2-1.0); Total Protein 5.1 g/dL (6.4-8.9)
[2020-09-26] MEDS ORDERED: Furosemide 40 mg/4 ml IV VIAL IV ONE (07:55)
[2020-09-26] MEDS ORDERED: LORazepam 2 mg VIAL 1 ml IV PUSH ONE (09:13)
[2020-09-26] MEDS ORDERED: Lorazepam PYXIS KEY PRN (09:13)
[2020-09-26] MEDS ORDERED: LORazepam 2 mg VIAL 1 ml ONE (10:02)
[2020-09-26] MEDS ORDERED: Lorazepam PYXIS KEY ONE (10:02)
[2020-09-26] MEDS ORDERED: LORazepam 2 mg VIAL 1 ml IV PUSH PRN (10:29)
[2020-09-26] MEDS: cefTRIAXone 1 gm/50 mL NS BAG 1 GM/50 ML BAG IVPB SCH (11:10)
[2020-09-26] MEDS: LORazepam 2 mg VIAL 1 ml IV PUSH PRN (11:51)
[2020-09-26] MEDS: Nystatin TOP POWDER 15 GM BTL TOPICAL SCH ×3 (13:02→21:43)
[2020-09-26] MEDS: Miconazole TOPICAL CREAM 2% 30 GM TOPICAL SCH ×2 (13:02→21:43)
[2020-09-27] MEDS: Miconazole TOPICAL CREAM 2% 30 GM TOPICAL SCH ×2 (08:26→21:31)
[2020-09-27] MEDS: Nystatin TOP POWDER 15 GM BTL TOPICAL SCH ×3 (08:27→21:32)
[2020-09-28] MEDS: LORazepam 2 mg VIAL 1 ml IV PUSH PRN (08:37)
[2020-09-28] MEDS: Nystatin TOP POWDER 15 GM BTL TOPICAL SCH ×3 (09:55→22:02)
[2020-09-28] MEDS: Miconazole TOPICAL CREAM 2% 30 GM TOPICAL SCH ×2 (09:55→22:02)
[2020-09-28] MEDS ORDERED: Lorazepam PYXIS KEY PRN (17:40)
[2020-09-28] MEDS: Morphine 10 MG/ML VIAL (1 ml) IV SCH (18:25)
[2020-09-28] MEDS: Glycopyrrolate IV 0.2 MG/ML 1 ML VIAL IV SLOW PU SCH (18:29)
[2020-09-28] MEDS ORDERED: LORazepam 2 mg VIAL 1 ml IV PUSH PRN (21:00)
[2020-09-29] MEDS: Morphine 10 MG/ML VIAL (1 ml) IV SCH ×5 (00:31→23:46)
[2020-09-29] MEDS: Glycopyrrolate IV 0.2 MG/ML 1 ML VIAL IV SLOW PU SCH ×4 (00:41→17:33)
[2020-09-29] MEDS: Morphine 2 MG/ML SYRINGE IV PRN ×2 (03:02→07:31)
[2020-09-29] MEDS: LORazepam 2 mg VIAL 1 ml IV PUSH PRN ×3 (07:58→20:35)
[2020-09-29] MEDS: Miconazole TOPICAL CREAM 2% 30 GM TOPICAL SCH ×2 (09:10→20:21)
[2020-09-29] MEDS: Nystatin TOP POWDER 15 GM BTL TOPICAL SCH ×3 (09:10→20:21)
[2020-09-29] MEDS: Morphine 10 MG/ML VIAL (1 ml) IV PRN (13:41)
[2020-09-29] MEDS ORDERED: LORazepam 2 mg VIAL 1 ml IV PUSH SCH (19:00)
[2020-09-30] MEDS: Glycopyrrolate IV 0.2 MG/ML 1 ML VIAL IV SLOW PU SCH ×4 (00:07→16:30)
[2020-09-30] MEDS: LORazepam 2 mg VIAL 1 ml IV PUSH PRN ×3 (03:27→11:34)
[2020-09-30] MEDS: Morphine 10 MG/ML VIAL (1 ml) IV SCH ×4 (05:55→19:57)
[2020-09-30] MEDS: Miconazole TOPICAL CREAM 2% 30 GM TOPICAL SCH ×2 (09:22→21:06)
[2020-09-30] MEDS: Nystatin TOP POWDER 15 GM BTL TOPICAL SCH ×3 (09:23→21:07)
[2020-09-30] MEDS: Morphine 10 MG/ML VIAL (1 ml) IV PRN ×3 (09:42→13:22)
[2020-09-30] MEDS ORDERED: Lorazepam PYXIS KEY PRN (09:55)
[2020-09-30] MEDS ORDERED: LORazepam 2 mg VIAL 1 ml IV PUSH PRN (12:12)
[2020-09-30] MEDS ORDERED: Morphine 10 MG/ML VIAL (1 ml) IV SCH (13:00)
[2020-09-30] MEDS: LORazepam 2 mg VIAL 1 ml IV PUSH SCH ×3 (14:01→22:03)
[2020-09-30] MEDS ORDERED: LORazepam 2 mg VIAL 1 ml IV PUSH SCH ×2 (15:00)
[2020-10-01] MEDS: Glycopyrrolate IV 0.2 MG/ML 1 ML VIAL IV SLOW PU SCH ×5 (00:18→17:19)
[2020-10-01] MEDS: Morphine 10 MG/ML VIAL (1 ml) IV SCH ×6 (00:27→20:19)
[2020-10-01] MEDS: LORazepam 2 mg VIAL 1 ml IV PUSH SCH ×6 (02:10→22:21)
[2020-10-01] MEDS: Miconazole TOPICAL CREAM 2% 30 GM TOPICAL SCH (08:03)
[2020-10-01] MEDS: Nystatin TOP POWDER 15 GM BTL TOPICAL SCH (08:03)
[2020-10-01] MEDS ORDERED: Morphine 2 MG/ML SYRINGE ONE (16:27)
[2020-10-02] MEDS: Glycopyrrolate IV 0.2 MG/ML 1 ML VIAL IV SLOW PU SCH ×4 (00:24→17:47)
[2020-10-02] MEDS: Morphine 10 MG/ML VIAL (1 ml) IV SCH ×6 (00:25→20:06)
[2020-10-02] MEDS: LORazepam 2 mg VIAL 1 ml IV PUSH SCH ×6 (01:57→22:05)
[2020-10-03] MEDS: Morphine 10 MG/ML VIAL (1 ml) IV SCH ×6 (00:08→20:07)
[2020-10-03] MEDS: Glycopyrrolate IV 0.2 MG/ML 1 ML VIAL IV SLOW PU SCH ×4 (00:09→17:40)
[2020-10-03] MEDS: LORazepam 2 mg VIAL 1 ml IV PUSH SCH ×6 (02:04→21:58)
[2020-10-03] MEDS: Morphine 10 MG/ML VIAL (1 ml) IV PRN ×2 (16:02→17:39)
[2020-10-03 16:44] VITALS: BP 142/88
[2020-10-04] MEDS: Morphine 10 MG/ML VIAL (1 ml) IV SCH ×7 (00:02→22:12)
[2020-10-04] MEDS: Glycopyrrolate IV 0.2 MG/ML 1 ML VIAL IV SLOW PU SCH ×4 (00:03→16:22)
[2020-10-04] MEDS: Morphine 10 MG/ML VIAL (1 ml) IV PRN ×3 (00:35→22:12)
[2020-10-04] MEDS: LORazepam 2 mg VIAL 1 ml IV PUSH SCH ×6 (02:08→22:03)
[2020-10-05] MEDS: Morphine 10 MG/ML VIAL (1 ml) IV SCH ×4 (00:05→12:04)
[2020-10-05] MEDS: Glycopyrrolate IV 0.2 MG/ML 1 ML VIAL IV SLOW PU SCH ×3 (00:09→14:20)
[2020-10-05] MEDS: LORazepam 2 mg VIAL 1 ml IV PUSH SCH ×6 (02:02→22:23)
[2020-10-05] MEDS: Morphine 10 MG/ML VIAL (1 ml) IV PRN (13:09)
[2020-10-05] MEDS ORDERED: Morphine ORAL CONCENTRATE 5 MG/0.25 ML ORAL.SYRIN SL PRN (15:05)
[2020-10-05] MEDS ORDERED: Lorazepam PYXIS KEY PRN (16:40)
[2020-10-05] MEDS ORDERED: LORazepam 2 mg VIAL 1 ml IV PUSH PRN (16:40)
[2020-10-05] MEDS: Morphine ORAL CONCENTRATE 5 MG/0.25 ML ORAL.SYRIN SL SCH ×2 (16:41→20:49)
[2020-10-05] MEDS: Morphine ORAL CONCENTRATE 5 MG/0.25 ML ORAL.SYRIN SL PRN (22:24)
[2020-10-06] MEDS: Morphine ORAL CONCENTRATE 5 MG/0.25 ML ORAL.SYRIN SL SCH ×3 (00:04→08:28)
[2020-10-06] MEDS: Morphine ORAL CONCENTRATE 5 MG/0.25 ML ORAL.SYRIN SL PRN ×2 (00:48→01:47)
[2020-10-06] MEDS: LORazepam 2 mg VIAL 1 ml IV PUSH SCH ×6 (02:02→22:33)
[2020-10-06] MEDS: Glycopyrrolate IV 0.2 MG/ML 1 ML VIAL IV SLOW PU SCH (08:30)
[2020-10-06] MEDS ORDERED: Buffered Lidocaine 1% SYRIN 1 ml INTRADERM ONE ×2 (11:06→13:14)
[2020-10-06] MEDS ORDERED: Morphine 4 MG/ML VIAL (1 ml) IV PRN (11:08)
[2020-10-06] MEDS: Morphine 10 MG/ML VIAL (1 ml) IV SCH ×3 (12:24→20:01)
[2020-10-07] MEDS: Morphine 10 MG/ML VIAL (1 ml) IV SCH ×3 (00:13→08:01)
[2020-10-07] MEDS: LORazepam 2 mg VIAL 1 ml IV PUSH SCH ×3 (02:45→10:04)
[2020-10-07] MEDS: Morphine 10 MG/ML VIAL (1 ml) IV PRN ×2 (09:03→10:03)
[2020-10-07] MEDS: Glycopyrrolate IV 0.2 MG/ML 1 ML VIAL IV SLOW PU SCH (09:59)
[2020-10-08] MEDS ORDERED: Scopolamine PATCH Remove NOTE PATCH OFF SCH (16:00)
== END 2020-10-07 11:00 | disposition expired | DRG 329 ==
LOC: ED 19:30 → MED 19:30 → SSU 09-23 22:28
PROVIDERS: ADMIT Internal Medicine; ATTEND Student in an Organized Health Care Education/Training Program